=== PATIENT | female | born 1990 | race Caucasian/White ===

== ENCOUNTER → 2018-10-17 | Outpatient (CLI) | payer OTHER ==
--- NOTE | 2018-10-17 10:55 | CT ---
EXAMINATION TYPE: CT facial bones w con DATE OF EXAM: 10/17/2018 COMPARISON: None HISTORY: Rt sided facial pain CT DLP: 655 mGycm Automated exposure control for dose reduction was used. CONTRAST: CT scan of the facial bones is performed with IV Contrast, patient injected with 100 mL of Isovue 300 . TECHNIQUE: CT scan of the sinuses is performed without contrast, axial images are obtained, coronal r eformatted images are also reviewed. FINDINGS: Changes of chronic sinusitis are noted is a nasal septal tunnel artifact limits examination . Visualized oropharynx are symmetric. Nasopharynx symmetric. Intraorbital structures have a normal appearance. Visualized intracranial structures are symmetric. Globes have a normal appearance. No intraorbital ed elder. There may be mild inflammation in the subcutaneous fat surrounding the periorbital region which should be correlated clinically. Visualized portion of mastoid air cells show no abnormal opacificati on. The globes are intact bilaterally. No diagnostic evidence of abscess. Parotid glands are symmetric. IMPRESSION: 1. There may be mild cutaneous edema in the periorbital region which could be associated with a mild periorbital cellulitis. Correlate clinically. Intraorbital structures are symmetric.
== END | disposition home or self-care (01) ==
LOC: RADCTMAIN 10:14
PROVIDERS: ATTEND Family Medicine
DX: L03.213 Periorbital cellulitis (principal); Z88.0 Allergy status to penicillin
CPT/HCPCS: 70487; Q9967

== ENCOUNTER → 2019-04-13 | Outpatient (CLI) | payer OTHER ==
--- NOTE | 2019-04-13 14:03 | MR ---
EXAMINATION TYPE: MR cervical spine wo con DATE OF EXAM: 04/13/2019 COMPARISON: None HISTORY: Cervical radiculopathy TECHNIQUE: Multiplanar, multisequence images of the cervical spine were acquired. FINDINGS: The cervical spine vertebral bodies maintain normal vertebral body heights and alignment. T he spinal cord signal is within normal limits. Mild disc desiccation is seen of the upper and mid cer vical spine. Visualized portions of the posterior fossa are limited but appear grossly unremarkable. No prevertebral soft tissue swelling is seen. C2-C3: Mild disc desiccation. No focal disc herniation. Very mild facet arthropathy results in mild l eft neural foraminal narrowing. No spinal canal stenosis nor right neural foraminal narrowing. C3-C4: Mild disc desiccation without focal herniation, spinal canal stenosis, nor neural foraminal na rrowing. C4-C5: Small broad-based disc bulge without spinal canal stenosis or neural foraminal narrowing. C5-C6: Small central disc herniation is seen with 2 mm of subligamentous caudal disc extrusion. This slightly narrows the ventral subarachnoid space but does not cause significant spinal canal stenosis. Minimal left facet arthropathy results in minimal left neural foraminal narrowing. Right neuroforame n is patent. C6-C7: Small broad-based disc bulge is seen without spinal canal stenosis nor neural foraminal narrow ing. C7-T1: No significant disc disease, spinal canal stenosis, nor neural foraminal narrowing. IMPRESSION: 1. Small central disc herniation at C5-C6 with 2 mm of subligamentous caudal disc extrusion. This cre ates mild narrowing of the subarachnoid space ventrally without significant spinal canal stenosis. 2. Mild multilevel degenerative disc disease as detailed above at each level without additional level of focal disc herniation or spinal canal stenosis.
== END | disposition home or self-care (01) ==
LOC: RADMRIMAIN 12:16
PROVIDERS: ATTEND Family Medicine
DX: M50.122 Cervical disc disorder at C5-C6 level with radiculopathy (principal); G96.19 Other disorders of meninges, not elsewhere classified
CPT/HCPCS: 72141

== ENCOUNTER → 2019-07-22 | Outpatient (CLI) | payer OTHER ==
--- NOTE | 2019-07-22 16:00 | XR ---
EXAMINATION TYPE: XR shoulder complete RT, XR humerus RT DATE OF EXAM: 07/22/2019 CLINICAL HISTORY: Contusion injury with pain. TECHNIQUE: Three views of the right shoulder are obtained. 2 views right humerus. COMPARISON: None. FINDINGS: There is no acute fracture/dislocation evident in the right shoulder. The acromioclavicul ar and glenohumeral joint spaces appear within normal limits. The visualized ribs are intact and unr emarkable. Images of right humerus show no acute displaced fracture. No suspicious focal osseous lesion. Visuali zed right elbow joint is within normal limits. IMPRESSION: There is no acute fracture or dislocation in the right humerus or shoulder.
== END | disposition home or self-care (01) ==
LOC: RADXRMAIN 15:41
PROVIDERS: ATTEND Emergency Medicine
DX: S40.021A Contusion of right upper arm, initial encounter (principal)

== ENCOUNTER → 2019-08-04 | Outpatient (CLI) | payer OTHER ==
[2019-07-31 15:29] VITALS: BMI 33.6
[2019-08-04 13:57] VITALS: BP 137/92; PULSE 106; RESP 18
--- NOTE | 2019-08-06 11:13 | P.PAINCN ---
History of Present Illness - Reason for Consult Consult date: 08/04/19 - History of Present Illness This is a 28-year-old patient referred by Dr. Garcia with a chief complaint of chronic pain in right side of neck, radiating to right shoulder, with associated right arm numbness radiating down to the medial 3 fingers. This pain began without any inciting event in November 2018, patient believes pain has been worsening since then. She also endorses subjective weakness in right upper extremity. Patient has been taking medications from primary care physician including gabapentin 300 mg daily at bedtime and Flexeril with some relief. She reports that the gabapentin helped initially for about 1 month, however does not feel like it is currently helping. Patient denies adverse drug effects from medications. Patient also denies new-onset weakness, bowel/bladder inconti nence, or any other signs or symptoms of cauda equina syndrome. There are no signs of acute intoxication, and no indications of medication diversion or overuse. The patient reports that her case has been reviewed by Dr. Valle, neurosurgeon, who recommended interventional pain management. Patient notes that pain worsens significantly with any movements, and improves with medications, to an extent. Pain is rated as 7 to 9/10 Patient has not had surgery. Patient has not had injections previously. Patient has had physical therapy recentlythis was primarily directed towards her right shoulder, she has not undergone cervical physical therapy. In addition to above, 13-point review of systems is also negative for chest pain, shortness of breath, changes in vision, changes in hearing, new onset weakness, abdominal pain, diarrhea, extreme fatigue, malaise, fever, skin changes, homicidal or suicidal ideation, or bowel or bladder incontinence. Past Medical History Past Medical History: Cancer, GERD/Reflux Additional Past Medical History / Comment(s): HX SKIN CANCER-BASAL CELL. HYPOGLYCEMIA. migraines, slipped disks in neck and some bulging, History of Any Multi-Drug Resistant Organisms: None Reported Past Surgical History: No Surgical Hx Reported Additional Past Surgical History / Comment(s): EGD, cyst removed from genital area Past Anesthesia/Blood Transfusion Reactions: No Reported Reaction Smoking Status: Never smoker - Past Family History Mother Family Medical History: No Reported History Medications and Allergies Home Medications Medication Instructions Recorded Confirmed Type Amitriptyline HCl 25 mg PO HS 01/24/20 01/28/20 History Gabapentin [Neurontin] 300 mg PO HS 07/31/19 08/04/19 History Isibloom Control Pill 1 tab PO HS 07/31/19 08/04/19 History Allergies Allergy/AdvReac Type Severity Reaction Status Date / Time azithromycin [From Zithromax] Allergy Rash/Hives Verified 07/31/19 15:23 Penicillins Allergy Rash/Hives Verified 07/31/19 15:23 Physical Exam Physical exam: Vital Signs: Reviewed in EMR GENERAL: Well appearing, in no acute distress PSYCH: Mood and affect is appropriate. Awake, alert, and oriented SKIN: Skin color, texture, turgor normal, no rashes or lesions HEENT: Normocephalic, atraumatic. EOM intact CV: No pedal edema RESP: Respirations are unlabored, no audible wheezing GI: Abdomen non-distended MUSCULOSKELETAL: She strengthright shoulder abduction 4/5, right triceps extension 4/5, right biceps flexion 4/5, actuarial associate strength is mildly reduced on the right side. No atrophy or tone abnormalities are noted. Neck: Tenderness to palpation over the cervical paraspinous muscles. Spurling negative, Axial Loading Test negative, Schwartz's sign negative. No obvious deformity or signs of trauma. Normal cervical lordotic curve and normal cervical spine range of motion Extremities: Peripheral joint ROM is full and pain free without obvious instability or laxity in all four extremities. No edema or skin discolorations noted. Gait: Gait is normal NEUR: Bilateral upper extremity coordination and muscle stretch reflexes are physiologic and symmetric. No loss of sensation is noted. Cranial nerves are grossly intact. Results Results: Imaging: MRI cervical spine done on 04/13/2019 shows small central disc herniation at C5- 6 with 2 mm subligamentous caudal disc extrusion which creates mild narrowing of the subarachnoid space without significant spinal canal stenosis. Mild multilevel degenerative disc disease. Assessment and Plan Plan: Assessment: 1. Cervical degenerative disc disease 2. Cervical radiculopathy Plan: 1. Explanation: Diagnoses, prognoses, and multiple treatment options including but not limited to physical therapy, interventional therapies, medication management and surgery were discussed with the patient and all questions were answered to the patient's satisfaction. 2. Investigations: MRI cervical spine reviewed 3. Counseling: None 4. Procedures: We will schedule C7/T1 epidural steroid injection, right paramedian approach. 5. Consultations: None currently, provided patient obtains benefit from epidural steroid injections, would recommend cervical physical therapy. 6. Medications: Patient was given a prescription for Mobic 7.5 mg daily, I would also recommend increasing her gabapentin gradually to 600 mg 3 times a day. Her primary care physician is providing her with the prescription for gabapentin, I will make this recommendation to her. 7. Disposition: For above-mentioned procedure PQRS Measure Charge Sheet Measure #130: Documentation of Current Meds in Medical Chart: Patient's medications documented in chart Measure #226: Tobacco Use: Screen & Cessation Intervention: Pt not a tobacco user Measure #111: Pneumonia Vaccination: Pneumococcal vaccine NOT administered or previously given Measure #47: Advance Care Plan: Advance care planning discussed & documented, pt chose/unable to give Measure #412: Opioid Treatment Agreement: No documentation of signed opioid treatment agreement Measure #408: Opioid Therapy Follow-up Evaluation: Patient had NO f/u eval minimum every 3 months during opioid therapy Measure #317: Preventitive Care & Scrn High Bld Press & F/U: Pre-hypertensive or hypertensive BP documented, pt will f/u with PCP Measure #128: Body Mass Index (BMI) Screening & Follow-up: BMI documented within normal parameters Measure #131: Pain Assessment & Follow-up: Pain positive & plan documented, Follow-up scheduled Measure #431: Unhealthy Alcohol Use Preventative Care & Scrn: Patient not identified as an unhealthy alcohol user PQRS Narrative: Smoking Status Never smoker Home Medications: Ambulatory Orders Amitriptyline HCl 25 mg PO HS 07/31/19 Gabapentin [Neurontin] 300 mg PO HS 07/31/19 Isibloom Control Pill 1 tab PO HS 07/31/19
== END | disposition home or self-care (01) ==
LOC: PNWHC3 13:00
PROVIDERS: ATTEND Anesthesiology
DX: G89.29 Other chronic pain (principal); M50.10 Cervical disc disorder with radiculopathy, unspecified cervical region; Z79.3 Long term (current) use of hormonal contraceptives; Z79.899 Other long term (current) drug therapy; Z88.0 Allergy status to penicillin; Z88.1 Allergy status to other antibiotic agents
CPT/HCPCS: 99211

== ENCOUNTER 2019-08-18 09:18 | Day surgery (SDC) | payer OTHER ==
[2019-08-17 10:36] VITALS: BMI 34.0
[~2019-08-18 09:18] MED LIST: DEXAMETHASONE SOD PHOSPHATE 10 MG/ML 1 ML VIAL ONE; IOPAMIDOL M200 10 ML VIAL ONE; MIDAZOLAM 2 MG/2 ML VIAL ONE; fentaNYL (PF) 50 MCG/ML 2 ML AMP ONE
[2019-08-18 09:51] LABS: Glucose,Whole Blood 93 mg/dL (75-99)
[2019-08-18 09:54] VITALS: RESP 16; TEMP 97
[2019-08-18] MEDS ORDERED: LACTATED RINGERS 1,000 ML IV ONE ×2 (09:54→10:49)
[2019-08-18] MEDS ORDERED: LIDOCAINE 1% 20 ML VIAL (10MG/ML) FOR IV START INTRADERMA ONE (09:54)
[2019-08-18] MEDS ORDERED: LACTATED RINGERS 1,000 ML IV SCH (10:30)
--- NOTE | 2019-08-18 10:44 | P.PCN ---
Date of Procedure: 08/18/19 Surgeon: Jurgen Evans Pathology: none sent Condition: stable Disposition: PACU Description of Procedure: PROCEDURE 1. Cervical epidural steroid injection under fluoroscopic guidance, C7-T1 Right paramedian approach. 2. Cervical epidurogram. : PREOPERATIVE DIAGNOSIS: Cervical radiculopathy POSTOPERATIVE DIAGNOSIS: : Same as above ANESTHESIA: Local anesthesia with 1% lidocaine and IV moderate conscious sedation with Versed and Fentanyl . EBL 0 PROCEDURE INDICATION: The patient with neck pain and radiculopathy unresponsive to conservative treatment consents for procedure. PROCEDURE DESCRIPTION / TECHNIQUE: The patient was seen and identified in the preoperative area. Risks, benefits, complications, including but not limited to infections ,bleeding , allergic reactions to the medications ,and not complete pain relief, and alternatives were discussed with the patient, the patient agreed to proceed with the procedure and signed the consent. Patient was taken to the OR and time out was completed. The patient was placed in the prone position on the procedure table. A pillow was placed under the patients chest to increase the flexion of the cervical spine . The cervical area was prepped and draped in the usual sterile fashion. Vital signs were closely monitored during the procedure. Conscious sedation was used during the procedure to decrease patients anxiety. Using anterior-posterior fluoroscopy, the C7-T1 interlaminar space was identified and the skin over this site was marked and then infiltrated with 1% lidocaine subcutaneously. Subsequently, a 20-gauge 3-1/2-inch Tuohy epidural needle was inserted and advanced toward the epidural space by means of loss of resistance to air technique and guided by AP and lateral fluoroscopy. The needle tip contacted the lamina of T1 vertebra first, then it was walked off bone and into the epidural space using the loss of to air and fluoroscopic guidance to identify the epidural space which was found at about 7 cm from skin. The correct needle position in the epidural space was verified with the injection of 1 mL of the water soluble contrast dye Isovue and observing an excellent epidurogram with the epidural spread of the dye, after negative aspiration for blood and CSF and in the absence of paresthesias. Again after negative aspiration, a 5 ml mixture containing 20 mg of Decadron and 3 ml of preservative free Normal Saline solution was injected and a washout of epidurogram was seen. Needle was withdrawn intact, skin was cleansed, and bandages were applied.
[2019-08-18 10:58] VITALS: PULSE 85
[2019-08-18 11:05] VITALS: BP 120/82
--- NOTE | 2019-08-18 11:12 | FL ---
EXAMINATION TYPE: FL guided pain mgmt statistic DATE OF EXAM: 08/18/2019 HISTORY: Pain CERVICAL EPIDURAL; 18 SEC FL - 1 PIC SCANNED
== END 2019-08-18 11:15 | disposition home or self-care (01) ==
LOC: ORPAIN 09:18
PROVIDERS: ATTEND Anesthesiology
DX: M50.122 Cervical disc disorder at C5-C6 level with radiculopathy (principal); K21.9 Gastro-esophageal reflux disease without esophagitis; G43.909 Migraine, unspecified, not intractable, without status migrainosus; E66.9 Obesity, unspecified; Z68.35 Body mass index [BMI] 35.0-35.9, adult; Z88.0 Allergy status to penicillin; Z88.1 Allergy status to other antibiotic agents; Z85.828 Personal history of other malignant neoplasm of skin; Z98.890 Other specified postprocedural states; Z79.3 Long term (current) use of hormonal contraceptives
CPT/HCPCS: 81025; 62321; J2250; J1100; J3010; Q9966; 99152

== ENCOUNTER → 2019-08-26 | Outpatient (CLI) | payer OTHER ==
[2019-08-26 13:52] VITALS: BP 117/75; PULSE 98; RESP 16
--- NOTE | 2019-08-26 14:15 | P.PAINPG ---
Subjective Progress Note Date: 08/26/19 Pooja is a 28-year-old female presents today for follow-up after having cervical epidural steroid injection. She presents with about 50% relief in her right arm. She still has right neck pain which she reports does not improve significantly. She has pain mostly at nighttime when trying to go to bed she is unable to get comfortable. She has a feeling that her right arm goes to sleep at times but that is decreased since the first epidural injection. She has been on gabapentin 300 mg at nighttime once a day, our last visit we discussed increasing the dose but her primary care physician did not increase it for her. She had questions today about the long-term prognosis of her cervical disc bulg e, I did discuss with her the long-term implications of using Neurontin as well as interventional steroids. Discussed that physical therapy as well as dietary changes may offer the best long-term benefit. Objective - Vital Signs Vital signs: Vital Signs Temp Pulse 98 08/26/19 13:48 Resp 16 08/26/19 13:48 BP 117/75 08/26/19 13:48 Pulse Ox 98 08/26/19 13:48 - Exam General: Awake and alert oriented 3 no distress Respiratory exam: No audible wheezing no accessory muscle usage Cardiovascular exam: regular rate, palpable bilateral pulses, no lower extremity edema Abdominal exam: No distention nontender to palpation Cervical spine: There is normal alignment of the cervical spine, there is no tenderness to palpation over left side of the cervical spine there is minimal tenderness to palpation of the right trapezius muscle, there is minimal tenderness to palpation of the osseous structures more towards the right side. There is no tenderness to palpation over the scapular spine or the acromion process. The shoulder moves freely with no pain with provocation. Spurling's positive on the right. Lumbar spine: Normal lumbar lordosis, preserved paraspinal muscles. There is preserved gluteal muscle bulk. Lower extremity strength is 5 out of 5 bilaterally. Neuro exam: Normal sensation in bilateral upper extremities, deep tendon reflexes are 2+ bilateral upper extremities. Normal sensation in bilateral lower extremities. Deep tendon reflexes are 2+ in lower extremities Psych exam: Cooperative, appropriate mood Assessment and Plan Assessment: #1 cervical radiculopathy Plan: Pooja is 28-year-old female with right-sided cervical radiculopathy. We discussed increasing her gabapentin to 600 mg at nighttime, address her take about 1-2 hours before going to bed. We discussed using this is a temporary measure for the next 30-60 days only. We discussed repeating the epidural 1 more time and then commencing with physical therapy. We will give her prescription for physical therapy after next follow-up. Maps was checked on today's visit. PQRS Measure Charge Sheet Measure #130: Documentation of Current Meds in Medical Chart: Patient's medications documented in chart Measure #226: Tobacco Use: Screen & Cessation Intervention: Pt screened for tobacco use AND intervention given Measure #111: Pneumonia Vaccination: Pneumococcal vaccine NOT administered or previously given Measure #47: Advance Care Plan: Advance care planning discussed & documented, pt chose/unable to give Measure #412: Opioid Treatment Agreement: Documented signed opioid trtmnt agreemnt min once during opioid trtmnt Measure #408: Opioid Therapy Follow-up Evaluation: Patient had f/u eval minimum every 3 months during opioid therapy Measure #317: Preventitive Care & Scrn High Bld Press & F/U: Normal blood pressure, f/u not required Measure #128: Body Mass Index (BMI) Screening & Follow-up: BMI documented ABOVE normal parameters - f/u documented Measure #131: Pain Assessment & Follow-up: Pain positive & plan documented Measure #431: Unhealthy Alcohol Use Preventative Care & Scrn: Patient not identified as an unhealthy alcohol user PQRS Narrative: Smoking Status Never smoker Blood Pressure 117/75 Pain Intensity [Right Shoulder 5 ] Scale Used Numeric (1 - 10) Hx Alcohol Use (MH) Yes: RARE Home Medications: Ambulatory Orders Amitriptyline HCl 25 mg PO HS 07/31/19 Gabapentin [Neurontin] 300 mg PO HS 07/31/19 Isibloom Control Pill 1 tab PO HS 07/31/19 Controlled Substance Measures - Controlled Substance Measures Is patient prescribed a controlled substance at discharge?: Yes When asked, does pt state using other controlled substances?: No If prescribed controlled substance>3 days was MAPS reviewed?: Yes If Rx opioid, was Start Talking consent form obtained?: No If opioid is for acute pain is fill amount 7 days or less?: Yes Was information provided regarding opioid addiction?: Yes
== END | disposition home or self-care (01) ==
LOC: PNWHC3 13:37
PROVIDERS: ATTEND Hospitalist
DX: M54.12 Radiculopathy, cervical region (principal); Z79.899 Other long term (current) drug therapy
CPT/HCPCS: 99211

== ENCOUNTER 2019-09-01 09:02 | Day surgery (SDC) | payer OTHER ==
[2019-08-27 14:16] VITALS: BMI 34.8
[~2019-09-01 09:02] MED LIST changes: -DEXAMETHASONE SOD PHOSPHATE 10 MG/ML 1 ML VIAL ONE; -IOPAMIDOL M200 10 ML VIAL ONE; +LACTATED RINGERS 1,000 ML IV SCH; -MIDAZOLAM 2 MG/2 ML VIAL ONE; -fentaNYL (PF) 50 MCG/ML 2 ML AMP ONE
[2019-09-01 09:42] LABS: Glucose,Whole Blood 110 mg/dL (75-99)
[2019-09-01 09:43] VITALS: TEMP 97.7
[2019-09-01] MEDS ORDERED: IOPAMIDOL M200 10 ML VIAL ONE (09:59)
[2019-09-01] MEDS ORDERED: fentaNYL (PF) 50 MCG/ML 2 ML AMP ONE (09:59)
[2019-09-01] MEDS ORDERED: MIDAZOLAM 2 MG/2 ML VIAL ONE (09:59)
[2019-09-01] MEDS ORDERED: DEXAMETHASONE SOD PHOSPHATE 10 MG/ML 1 ML VIAL ONE (09:59)
--- NOTE | 2019-09-01 10:16 | P.PCN ---
Date of Procedure: 09/01/19 Description of Procedure: taj Evans Pathology: none sent Condition: stable Disposition: PACU Description of Procedure: PROCEDURE 1. Cervical epidural steroid injection under fluoroscopic guidance, C7-T1 Right paramedian approach. 2. Cervical epidurogram. : PREOPERATIVE DIAGNOSIS: Cervical radiculopathy POSTOPERATIVE DIAGNOSIS: : Same as above ANESTHESIA: Local anesthesia with 1% lidocaine and IV moderate conscious sedation with Versed and Fentanyl . EBL 0 PROCEDURE INDICATION: The patient with neck pain and radiculopathy unresponsive to conservative treatment consents for procedure. PROCEDURE DESCRIPTION / TECHNIQUE: The patient was seen and identified in the preoperative area. Risks, benefits, complications, including but not limited to infections ,bleeding , allergic reactions to the medications ,and not complete pain relief, and alternatives were discussed with the patient, the patient agreed to proceed with the procedure and signed the consent. Patient was taken to the OR and time out was completed. The patient was placed in the prone position on the procedure table. A pillow was placed under the patients chest to increase the flexion of the cervical spine . The cervical area was prepped and draped in the usual sterile fashion. Vital signs were closely monitored during the procedure. Conscious sedation was used during the procedure to decrease patients anxiety. Using anterior-posterior fluoroscopy, the C7-T1 interlaminar space was identified and the skin over this site was marked and then infiltrated with 1% lidocaine subcutaneously. Subsequently, a 20-gauge 3-1/2-inch Tuohy epidural needle was inserted and advanced toward the epidural space by means of loss of resistance to air technique and guided by AP and lateral fluoroscopy. The needle tip contacted the lamina of T1 vertebra first, then it was walked off bone and into the epidural space using the loss of to air and fluoroscopic guidance to identify the epidural space which was found at about 7 cm from skin. The correct needle position in the epidural space was verified with the injection of 1 mL of the water soluble contrast dye Isovue and observing an excellent epidurogram with the epidural spread of the dye, after negative aspiration for blood and CSF and in the absence of paresthesias. Again after negative aspiration, a 5 ml mixture containing 10 mg of Decadron and 3 ml of preservative free Normal Saline solution was injected and a washout of epidurogram was seen. Needle was withdrawn intact, skin was cleansed, and bandages were applied. A copy of the needle placement patient was saved to the fluoroscopy machine.
[2019-09-01] MEDS ORDERED: IV FLUID CONTINUATION 975 ML IV ONE (10:29)
--- NOTE | 2019-09-01 10:34 | FL ---
EXAMINATION TYPE: FL guided pain mgmt statistic DATE OF EXAM: 09/01/2019 CLINICAL HISTORY: Neck pain. TECHNIQUE: Fluoroscopy. COMPARISON: None. FINDINGS: Fluoroscopic guidance was provided during pain relief procedure performed by Dr. Evans. A total of 7 seconds of fluoroscopic time was utilized during the procedure and two spot images are acquired. Images acquired shows needle localization of the cervical thoracic junction. IMPRESSION: As Above.
[2019-09-01 10:46] VITALS: RESP 16
[2019-09-01 11:00] VITALS: BP 130/82; PULSE 88
== END 2019-09-01 11:36 ==
LOC: ORPAIN 09:02
PROVIDERS: ATTEND Anesthesiology
DX: M54.12 Radiculopathy, cervical region (principal); Z88.0 Allergy status to penicillin; Z88.1 Allergy status to other antibiotic agents
CPT/HCPCS: 81025; 62321; J2250; J1100; J3010; Q9966

== ENCOUNTER → 2020-10-20 | Outpatient (CLI) | payer OTHER ==
--- NOTE | 2020-10-21 11:43 | XR ---
EXAMINATION TYPE: XR chest 2V DATE OF EXAM: 10/20/2020 COMPARISON: 11/28/2010 HISTORY: 29-year-old female cough and shortness of breath TECHNIQUE: Frontal and lateral views FINDINGS: The cardiomediastinal silhouette, aorta, and pulmonary vasculature are within normal limits. Lungs an d pleural spaces are clear. IMPRESSION: No acute cardiopulmonary process.
== END | disposition home or self-care (01) ==
LOC: RADXRMAIN 16:19
PROVIDERS: ATTEND Physician Assistant Medical
DX: R06.02 Shortness of breath (principal); R05 Cough
CPT/HCPCS: 71046

== ENCOUNTER → 2021-09-04 | Outpatient (CLI) | payer OTHER ==
--- NOTE | 2021-09-05 08:39 | USB ---
Reason for exam: clinical finding. History: Patient has history of other cancer at age 19. Family history of breast cancer in maternal aunt. Taking hormonal contraceptives for 12 years. Indicated problem(s): lump or thickening in the right breast. Physical Findings: Nurse Summary: patient states doctor felt right breast lump 2 weeks ago, bilateral nodularity (nurse mj). US Breast RT Right complete breast ultrasound includes all four quadrants, the retroareolar region and axilla. Finding demonstrates no cystic or solid lesion seen. Right breast scanned entirely. These results were verbally communicated with the patient and result sheet given to the patient on 09/04/21. ASSESSMENT: Negative, BI-RAD 1 RECOMMENDATION: Clinical management of the right breast. Manage patient on a clinical basis.
== END | disposition home or self-care (01) ==
LOC: RADUSWWP 14:52
PROVIDERS: ATTEND Family Medicine
DX: N63.0 Unspecified lump in unspecified breast (principal); Z80.3 Family history of malignant neoplasm of breast

== ENCOUNTER 2022-04-03 06:28 | Day surgery (SDC) | payer OTHER ==
[~2022-04-03 06:28] MED LIST changes: +ACETAMINOPHEN TAB 500 MG TAB PO PRN; +DEXAMETHASONE SOD PHOSPHATE 4 MG/ML 1 ML VIAL IV ONE; +HEPARIN SODIUM,PORCINE/PF 5,000 UNIT/0.5 ML SYRINGE SQ PRN; +ONDANSETRON 4 MG/2 ML VIAL IVP ONE
[2022-04-03 07:06] LABS: Glucose,Whole Blood 90 mg/dL (70-110)
[2022-04-03 07:11] VITALS: RESP 16
[2022-04-03] MEDS ORDERED: HYDROCORTISONE SUCCINATE 100 MG/2 ML VIAL IVP ONE (07:12)
[2022-04-03] MEDS ORDERED: fentaNYL (PF) 50 MCG/ML 2 ML AMP ONE (07:47)
[2022-04-03] MEDS ORDERED: ROCURONIUM 10 MG/ML (5 ML VIAL) IV ONE (07:47)
[2022-04-03] MEDS ORDERED: LIDOCAINE 2% INJ 20 MG/ML (2 ML VIAL) ONE (07:47)
[2022-04-03] MEDS ORDERED: HYDROmorphone (PF) 1 MG/ML ONE (07:47)
[2022-04-03] MEDS ORDERED: PROPOFOL 10 MG/ML 20 ML VIAL IV ONE (07:47)
[2022-04-03] MEDS ORDERED: MIDAZOLAM 2 MG/2 ML VIAL ONE (07:47)
[2022-04-03] MEDS ORDERED: GLYCOPYRROLATE 0.2 MG/ML 2 ML VIAL ONE (07:47)
[2022-04-03] MEDS ORDERED: BUPIVACAINE (PF) 0.25% 30 ML VIAL SQ ONE (08:16)
--- NOTE | 2022-04-03 08:41 | P.GSHP ---
History of Present Illness H&P Date: 04/03/22 Chief Complaint: Right upper quadrant pain This a 31-year-old female cholecystitis or quadrant pain. Her recent HIDA scans was abnormal ejection fraction consistent with chronic cholecystitis. Past Medical History Past Medical History: Cancer, Diabetes Mellitus, GERD/Reflux Additional Past Medical History / Comment(s): HX SKIN CANCER-BASAL CELL. HYPOGLYCEMIA. migraines, slipped disks in neck and some bulging, " pre diabetic" History of Any Multi-Drug Resistant Organisms: None Reported Past Surgical History: No Surgical Hx Reported Additional Past Surgical History / Comment(s): EGD, cyst removed from genital area, PAIN CLINIC PROCEDURES Past Anesthesia/Blood Transfusion Reactions: No Reported Reaction Additional Past Anesthesia/Blood Transfusion Reaction / Comment(s): SLOW TO WAKE UP FROM ANESTHESIA Smoking Status: Never smoker - Past Family History Mother Family Medical History: No Reported History Medications and Allergies Home Medications Medication Instructions Recorded Confirmed Type Isibloom Control Pill 1 tab PO HS 07/31/19 04/03/22 History Liraglutide [Saxenda] 3 ml INJ DAILY 03/29/22 04/03/22 History Lumateperone Tosylate [Caplyta] 42 mg PO HS 03/29/22 04/03/22 History Prazosin [Minipress] 1 tab PO HS 03/29/22 04/03/22 History Sertraline [Zoloft] 100 mg PO HS 03/29/22 04/03/22 History Topiramate [Topamax] 1 tab PO HS 03/29/22 04/03/22 History Allergies Allergy/AdvReac Type Severity Reaction Status Date / Time azithromycin [From Zithromax] Allergy Rash/Hives Verified 04/03/22 07:50 Penicillins AdvReac Nausea & Verified 04/03/22 07:50 Vomiting Surgical - Exam Vital Signs Temp Pulse Resp BP Pulse Ox 97.3 F L 64 16 121/57 97 04/03/22 06:59 04/03/22 06:59 04/03/22 06:59 04/03/22 06:59 04/03/22 06:59 - General well developed, well nourished, no distress - Eyes PERRL - ENT normal pinna - Neck no masses - Respiratory normal expansion - Cardiovascular Rhythm: regular - Abdomen Abdomen: soft, non tender Assessment and Plan Assessment: Chronic cholecystitis. We'll perform laparoscopic cholecystectomy
--- NOTE | 2022-04-03 08:41 | P.OP ---
Date of Procedure: 04/03/22 Preoperative Diagnosis: Chronic cholecystitis Postoperative Diagnosis: Chronic cholecystitis Procedure(s) Performed: Laparoscopic cholecystectomy Anesthesia: CITLALI Surgeon: Olu Shipley Estimated Blood Loss (ml): 5 Pathology: other (Gallbladder) Condition: stable Disposition: PACU Description of Procedure: The patient was placed on the operating table. The patient received a general endotracheal tube anesthesia. The patients abdomen was prepped and draped in the usual sterile fashion. Through an infraumbilical stab incision, the fascia of the anterior abdominal wall was grasped with a pair of Kochers and then the Veress needle was placed in the peritoneal cavity. Position of the Veress needle was confirmed with positive drop test. The abdomen was then insufflated. After adequate insufflation, the 10 mm trocar was placed in the peritoneal cavity. Following this the laparoscope was placed in the peritoneal cavity. The patient was placed in the head-up, right side up position and then a 5 mm trocar was placed in the right lateral and right subcostal position under direct visualization. A 8 mm trocar was placed in the epigastric position. The gallbladder was grasped in the fundus and infundibulum. Traction on the gallbladder was placed in the lateral and the cephalad positions. The triangle of Calot was visualized.. The cystic duct was bluntly dissected until the union of the cystic duct and common bile duct was seen. A critical view of safety was achieved. The cystic duct was then divided and sealed with the Harmonic scissors. A PDS Endoloop was then placed throughout the cystic duct stump. The cystic artery divided and sealed with the Harmonic scissors. The gallbladder was then removed from the liver bed using Harmonic scissors. The gallbladder was then extracted through the epigastric port site. Operative field was checked for any bleeding spots and Harmonic scissors was used to coagulate the liver bed. The abdomen was irrigated. The trocars were removed. The skin was closed using interrupted 3-0 Vicryl suture. Dermabond dressing were applied. The patient tolerated the procedure well.
[2022-04-03] MEDS ORDERED: KETOROLAC 15 MG/ML 1 ML VIAL IVP ONE (08:50)
[2022-04-03] MEDS: HYDROmorphone 0.5 MG/0.5 ML SYRINGE IVP PRN ×2 (09:00→09:25)
[2022-04-03 09:06] VITALS: TEMP 96.9
[2022-04-03] MEDS ORDERED: LACTATED RINGERS 1,000 ML IV ONE (09:16)
[2022-04-03] MEDS ORDERED: ONDANSETRON 4 MG/2 ML VIAL ONE (10:59)
[2022-04-03] MEDS ORDERED: ONDANSETRON 4 MG/2 ML VIAL IVP ONE (11:01)
[2022-04-03 11:33] VITALS: BP 114/65; PULSE 81
== END 2022-04-03 11:56 | disposition home or self-care (01) ==
LOC: OR 06:28
PROVIDERS: ATTEND Surgery
DX: K80.10 Calculus of gallbladder with chronic cholecystitis without obstruction (principal); E11.649 Type 2 diabetes mellitus with hypoglycemia without coma; K58.9 Irritable bowel syndrome, unspecified; K21.9 Gastro-esophageal reflux disease without esophagitis; G43.909 Migraine, unspecified, not intractable, without status migrainosus; M50.20 Other cervical disc displacement, unspecified cervical region; Z85.828 Personal history of other malignant neoplasm of skin; Z98.890 Other specified postprocedural states; Z79.4 Long term (current) use of insulin; Z79.83 Long term (current) use of bisphosphonates; Z79.899 Other long term (current) drug therapy; Z79.811 Long term (current) use of aromatase inhibitors; Z88.0 Allergy status to penicillin; Z88.1 Allergy status to other antibiotic agents
CPT/HCPCS: 47562; 81025; 88304; J2250; J1100; J1720; J0690; J2405; J3010; J1170 ×2; J1885; J2704; J1644; J2001

== ENCOUNTER 2022-05-17 06:58 | Day surgery (SDC) | payer OTHER ==
[2022-05-17 07:30] LABS: Glucose,Whole Blood 94 mg/dL (70-110)
[2022-05-17 07:31] VITALS: TEMP 97.7
[2022-05-17] MEDS ORDERED: LACTATED RINGERS 1,000 ML IV ONE (07:32)
[2022-05-17] MEDS ORDERED: PROPOFOL 10 MG/ML 20 ML VIAL IV ONE (07:48)
[2022-05-17] MEDS ORDERED: LACTATED RINGERS 1,000 ML IV SCH (07:48)
[2022-05-17] MEDS ORDERED: LIDOCAINE 1% (10MG/ML) FOR IV START INTRADERMA PRN (07:48)
[2022-05-17] MEDS ORDERED: LIDOCAINE 2% INJ 20 MG/ML (2 ML VIAL) ONE (07:48)
--- NOTE | 2022-05-17 07:53 | P.GSHP ---
History of Present Illness H&P Date: 05/17/22 Chief Complaint: GERD The 31-year-old female with history of GERD. Patient presents today for EGD. Past Medical History Past Medical History: Cancer, Diabetes Mellitus, GERD/Reflux Additional Past Medical History / Comment(s): HX SKIN CANCER-BASAL CELL. HYPOGLYCEMIA. migraines, slipped disks in neck and some bulging, History of Any Multi-Drug Resistant Organisms: None Reported Past Surgical History: No Surgical Hx Reported, Cholecystectomy Additional Past Surgical History / Comment(s): EGD, cyst removed from genital area, PAIN CLINIC PROCEDURES Past Anesthesia/Blood Transfusion Reactions: No Reported Reaction Additional Past Anesthesia/Blood Transfusion Reaction / Comment(s): SLOW TO WAKE UP FROM ANESTHESIA Smoking Status: Never smoker - Past Family History Mother Family Medical History: No Reported History Medications and Allergies Home Medications Medication Instructions Recorded Confirmed Type Isibloom Control Pill 1 tab PO HS 07/31/19 05/17/22 History Liraglutide [Saxenda] 3 ml INJ DAILY 03/29/22 05/17/22 History Prazosin [Minipress] 1 tab PO HS 03/29/22 05/17/22 History Sertraline [Zoloft] 100 mg PO HS 03/29/22 05/17/22 History Topiramate [Topamax] 1 tab PO HS 03/29/22 05/17/22 History Acetaminophen Tab [Tylenol] 650 mg PO Q6H #30 tab 04/03/22 05/17/22 Rx Brexpiprazole [Rexulti] 1 mg PO DAILY 05/17/22 05/17/22 History Allergies Allergy/AdvReac Type Severity Reaction Status Date / Time azithromycin [From Zithromax] Allergy Rash/Hives Verified 05/17/22 07:12 Penicillins AdvReac Nausea & Verified 05/17/22 07:12 Vomiting Surgical - Exam Vital Signs Temp Pulse Resp BP Pulse Ox 97.7 F 84 15 119/73 98 05/17/22 07:23 05/17/22 07:23 05/17/22 07:23 05/17/22 07:23 05/17/22 07:23 - General well developed, well nourished, no distress - Eyes PERRL - ENT normal pinna - Neck no masses - Respiratory normal expansion - Cardiovascular Rhythm: regular - Abdomen Abdomen: soft, non tender Assessment and Plan Assessment: GERD. We'll perform EGD.
--- NOTE | 2022-05-17 08:01 | P.OP ---
Date of Procedure: 05/17/22 Preoperative Diagnosis: GERD Postoperative Diagnosis: Antral gastritis Procedure(s) Performed: EGD Anesthesia: MAC Surgeon: Olu Shipley Pathology: other (Antrum) Condition: stable Disposition: PACU Description of Procedure: The patient's placed on the endoscopy table in the lateral position. She rece ived IV sedation. The gastroscope placed oropharynx passed in the esophagus into the stomach. Scope was then placed through the pylorus. The first and second portion of the duodenum appeared normal. The scope was then brought back into the antrum. This appeared. Mildly inflamed. A biopsies performed. The scope was then retroflexed and the remainder the stomach appeared normal. The GE junction was at 40 cm. There was no significant hiatal hernia. The distal esophagus appeared minimally inflamed a biopsies performed. The proximal esophagus appeared normal. Scope withdrawn for patient.
[2022-05-17 08:37] VITALS: BP 115/79; PULSE 71; RESP 17
== END 2022-05-17 09:05 | disposition home or self-care (01) ==
LOC: ORWHC2ENDO 06:58
PROVIDERS: ATTEND Surgery
DX: K29.50 Unspecified chronic gastritis without bleeding (principal); K21.9 Gastro-esophageal reflux disease without esophagitis; E11.9 Type 2 diabetes mellitus without complications; G43.909 Migraine, unspecified, not intractable, without status migrainosus; E16.2 Hypoglycemia, unspecified; M50.20 Other cervical disc displacement, unspecified cervical region; Z90.49 Acquired absence of other specified parts of digestive tract; Z85.828 Personal history of other malignant neoplasm of skin; Z88.1 Allergy status to other antibiotic agents; Z88.0 Allergy status to penicillin; Z79.899 Other long term (current) drug therapy; Z79.84 Long term (current) use of oral hypoglycemic drugs
CPT/HCPCS: 88305; 43239; J2704; J2001

== ENCOUNTER → 2022-06-21 | Outpatient (CLI) | payer OTHER ==
--- NOTE | 2022-06-21 20:31 | FL ---
EXAMINATION TYPE: FL UGI air w esophagus DATE OF EXAM: 06/21/2022 COMPARISON: None HISTORY: Gastroesophageal reflux TECHNIQUE: Double air contrast technique is utilized to evaluate the esophagus and upper gastrointest inal tract. FINDINGS: Esophagus dilated to normal caliber has normal contour to the gastroesophageal junction.. No intralum inal or extramural defects evident. Gastroesophageal reflux to the level of the clavicles was evident during the exam. Fundus body and antrum of the stomach are well visualized. No intraluminal or extrarenal defects evid ent. There is mild fold hypertrophy through the duodenum. Duodenal sweep and ligament of Treitz is in the normal position. IMPRESSION: 1. Gastroesophageal reflux to the level of clavicles. 2. Mild duodenitis may be present.
== END | disposition home or self-care (01) ==
LOC: RADUSWWP 08:01
PROVIDERS: ATTEND Surgery
DX: K21.9 Gastro-esophageal reflux disease without esophagitis (principal)
CPT/HCPCS: 74246

== ENCOUNTER 2022-07-20 10:00 | Day surgery (SDC) | payer OTHER ==
[~2022-07-20 10:00] MED LIST changes: -LACTATED RINGERS 1,000 ML IV SCH; +MIDAZOLAM 2 MG/2 ML VIAL IV PRN; +SCOPOLAMINE 1 MG/72 HR PATCH TRANSDERM ONE
[2022-07-20] MEDS: LACTATED RINGERS 1,000 ML IV SCH (10:55)
[2022-07-20 11:01] LABS: Glucose,Whole Blood 88 mg/dL (70-110)
[2022-07-20] MEDS ORDERED: BUPIVACAIN-EPI 0.25%-1:200,000 30 ML VIAL SQ ONE ×2 (12:30→12:55)
[2022-07-20] MEDS ORDERED: LACTATED RINGERS 1,000 ML IV ONE (13:18)
--- NOTE | 2022-07-20 13:36 | P.OP ---
Date of Procedure: 07/20/22 Preoperative Diagnosis: GERD Postoperative Diagnosis: GERD Procedure(s) Performed: Laparoscopic Carlos fundoplication Anesthesia: CITLALI Surgeon: Olu Shipley Estimated Blood Loss (ml): 5 Pathology: none sent Condition: stable Disposition: PACU Description of Procedure: HThe patient was placed on the operating table in the supine position. The patient received general anesthesia. And was placed in dorsal lithotomy position. The patient was prepped and draped in the usual sterile fashion. The skin incision sites were anesthetized with 1% local Xylocaine. The skin was incised in the left periumbilical area and then using a blade less 5 mm trocar under direct visualization panel cavity was entered. After adequate insufflation the laparoscope was then placed into the peritoneal cavity. Next a 5 mm trochars placed in the right epigastric position. Another 5 millimeter trocar the right lateral position. Another 5 millimeter trocar in the left lateral position a 5 mm trocar is placed in the left epigastric position. And then the initial 5 mm trocar was exchanged for a 10 mm trocar. The left lateral lobe liver was retracted. The hernia was seen. The crural defect was then dissected using the Harmonic scissors device. A 360 crural dissection was performed the esophagus stomach was reduced back into the peritoneal Cavity. The crural defect was then closed using 2-0 Ethibond suture. Next the fundus of the stomach was mobilized using the [place] scissors device. and then a 58- Swedish bougie dilator was placed oropharynx passed into the esophagus and stomach the fundal plication wrap was then performed by grasping the fundus posteriorly and bringing it around the esophagus and stomach fundoplication was then performed using 2-0 Ethibond suture. Care was taken that the fundal location rested over top of the intra-abdominal esophagus. There was no injury seen to the stomach or esophagus. The dilator was then withdrawn. The abdomen was irrigated there is no bleeding seen. The trochars were then withdrawn and then skin incision sites were closed using 3-0 Monocryl suture Steri-Strips are applied. Patient thought procedure well and sent to recovery room in stable condition.
[2022-07-20] MEDS: HYDROmorphone 0.5 MG/0.5 ML SYRINGE IVP PRN ×2 (14:56→15:08)
[2022-07-20] MEDS: D5-0.45% NACL WITH KCL 20MEQ/L 1,000 ML IV SCH ×2 (18:33→23:21)
[2022-07-20] MEDS: HYDROmorphone 1 MG/ML 1 ML SYRINGE IVP PRN (20:07)
[2022-07-20] MEDS: TOPIRAMATE 100 MG TAB PO SCH (21:53)
[2022-07-21] MEDS: LACTATED RINGERS 1,000 ML IV SCH (04:36)
[2022-07-21] MEDS: HYDROmorphone 1 MG/ML 1 ML SYRINGE IVP PRN (04:39)
[2022-07-21] MEDS: SERTRALINE 100 MG TAB PO SCH (08:52)
[2022-07-21] MEDS: D5-0.45% NACL WITH KCL 20MEQ/L 1,000 ML IV SCH ×3 (08:52→23:54)
[2022-07-21] MEDS: ENOXAPARIN 40 MG/0.4 ML SYRINGE SQ SCH (08:52)
--- NOTE | 2022-07-21 11:02 | P.CONS ---
History of Present Illness - Reason for Consult Management of diabetes mellitus - History of Present Illness Patient is status post Arash fundoplication clinically doing well patient the is passing gas still has some soreness in the surgical site area. Patient denied any fever chills nausea vomiting abdominal pain. REVIEW OF SYSTEMS: CONSTITUTIONAL: No fever, no malaise, no fatigue. HEENT: No recent visual problems or hearing problems. Denied any sore throat. CARDIOVASCULAR: No chest pain, orthopnea, PND, no palpitations, no syncope. PULMONARY: No shortness of breath, no cough, no hemoptysis. GASTROINTESTINAL: No diarrhea, no nausea, no vomiting.NEUROLOGICAL: No headaches, no weakness, no numbness. HEMATOLOGICAL: Denies any bleeding or petechiae. GENITOURINARY: Denies any burning micturition, frequency, or urgency. MUSCULOSKELETAL/RHEUMATOLOGICAL: Denies any joint pain, swelling, or any muscle pain. ENDOCRINE: Denies any polyuria or polydipsia. The rest of the 14-point review of systems is negative. PHYSICAL EXAMINATION: GENERAL: The patient is alert and oriented x3, not in any acute distress. Well developed, well nourished. HEENT: Pupils are round and equally reacting to light. EOMI. No scleral icterus. No conjunctival pallor. Normocephalic, atraumatic. No pharyngeal erythema. No thyromegaly. CARDIOVASCULAR: S1 and S2 present. No murmurs, rubs, or gallops. PULMONARY: Chest is clear to auscultation, no wheezing or crackles. ABDOMEN: Soft, nontender, nondistended, normoactive bowel sounds. No palpable organomegaly. Surgical site area is clear MUSCULOSKELETAL: No joint swelling or deformity. EXTREMITIES: No cyanosis, clubbing, or pedal edema. NEUROLOGICAL: Gross neurological examination did not reveal any focal deficits. SKIN: No rashes. Assessment and plan -Gastroesophageal reflux disease status post Arash fundoplication continue with proton pump inhibitor patient is able to tolerate liquid diet patient is medically stable to be discharged. -Type 2 diabetes mellitus patient was started on sliding scale insulin patient can resume her home regimen upon discharge -Bipolar disorder for which patient will be started on her home medications DVT prophylaxis: As per primary service Past Medical History Past Medical History: Cancer, Diabetes Mellitus, GERD/Reflux, Musculoskeletal Disorder Additional Past Medical History / Comment(s): HX SKIN CANCER-BASAL CELL. HYPOGLYCEMIA. migraines, slipped disks in neck and some bulging History of Any Multi-Drug Resistant Organisms: None Reported Past Surgical History: Cholecystectomy Additional Past Surgical History / Comment(s): cyst removed from genital area, PAIN CLINIC PROCEDURES, recent EGD, arash funduloplasty 07/20/[address] mcintosh Past Anesthesia/Blood Transfusion Reactions: No Reported Reaction Additional Past Anesthesia/Blood Transfusion Reaction / Comm: SLOW TO WAKE UP FROM ANESTHESIA Past Psychological History: Anxiety, Bipolar, Depression, PTSD Smoking Status: Never smoker Past Alcohol Use History: Rare Past Drug Use History: None Reported - Past Family History Mother Family Medical History: No Reported History Medications and Allergies Home Medications Medication Instructions Recorded Confirmed Type Isibloom Control Pill 1 tab PO HS 07/31/19 07/17/22 History Liraglutide [Saxenda] 3 ml INJ DAILY 03/29/22 07/20/22 History Prazosin [Minipress] 1 mg PO HS 03/29/22 07/17/22 History Sertraline [Zoloft] 100 mg PO DAILY 03/29/22 07/17/22 History Topiramate [Topamax] 150 mg PO HS 03/29/22 07/17/22 History Allergies Allergy/AdvReac Type Severity Reaction Status Date / Time azithromycin [From Zithromax] Allergy Rash/Hives Verified 07/17/22 16:02 Penicillins AdvReac Nausea & Verified 07/17/22 16:02 Vomiting Physical Exam Vitals: Vital Signs Temp Pulse Pulse Resp BP BP Pulse Ox 07/21/22 07:41 98.1 F 80 16 110/68 98 07/21/22 01:24 98.2 F 72 14 105/68 98 07/20/22 19:21 98.2 F 87 15 100/63 97 07/20/22 17:55 113 H 100/45 97 07/20/22 17:25 84 107/65 95 07/20/22 16:55 88 112/77 96 07/20/22 16:40 83 120/80 95 07/20/22 16:25 108 H 123/68 96 07/20/22 16:10 86 118/55 91 L 07/20/22 15:55 98.1 F 87 18 120/72 96 07/20/22 15:21 74 16 108/59 99 07/20/22 15:04 73 16 107/56 99 07/20/22 14:49 74 16 115/64 99 07/20/22 14:33 81 16 116/61 99 07/20/22 14:19 77 14 119/64 99 07/20/22 14:04 78 14 123/65 100 07/20/22 13:40 97.2 F L 100 14 122/65 100 Intake and Output 07/20/22 07/21/22 07/21/22 22:59 06:59 14:59 Other: Voiding Method Toilet # Voids 1 1 Weight 88.5 kg
--- NOTE | 2022-07-21 11:12 | P.PN ---
Progress Note - Text Progress Note Date: 07/21/22 Patient has complaints of incisional pain. She also has some complaints of shoulder pain. She is tolerating clear liquids. On exam vital signs are still. Abdomen soft. Patient will be discharged tomorrow. She'll stay for postoperative pain management.
[2022-07-21 12:34] VITALS: BMI 33.5
[2022-07-21] MEDS: HYDROcodone/APAP 5-325MG 1 EACH TAB PO PRN (19:54)
[2022-07-21] MEDS ORDERED: PRAZOSIN 1 MG CAP PO SCH (21:00)
[2022-07-21] MEDS: TOPIRAMATE 100 MG TAB PO SCH (21:13)
[2022-07-22] MEDS: LACTATED RINGERS 1,000 ML IV SCH (06:32)
[2022-07-22 08:03] VITALS: BP 115/76; PULSE 82; RESP 18; TEMP 97.3
[2022-07-22] MEDS: HYDROcodone/APAP 5-325MG 1 EACH TAB PO PRN (08:35)
[2022-07-22] MEDS: ENOXAPARIN 40 MG/0.4 ML SYRINGE SQ SCH (08:35)
[2022-07-22] MEDS: SERTRALINE 100 MG TAB PO SCH (08:35)
[2022-07-22] MEDS: D5-0.45% NACL WITH KCL 20MEQ/L 1,000 ML IV SCH (09:08)
--- NOTE | 2022-07-22 11:49 | P.DS ---
Providers Expected date of discharge: 07/22/22 Attending physician: Olu Shipley Consults: 07/20/22 13:36 Consult Physician Routine Consulting Provider: Leanna Good Consult Reason/Comments: Medical management Do you want consulting provider notified?: Yes Primary care physician: Keri Garcia [facility] Course: The 31-year-old female who underwent laparoscopic dislocation. Patient did well postop. Please see chart for details. Procedures: Laparoscopic Carlos fundoplication Patient Condition at Discharge: Good Plan - Discharge Summary Discharge Rx Participant: No New Discharge Prescriptions: New Acetaminophen Tab [Tylenol] 650 mg PO Q6H #30 tab Docusate [Colace] 100 mg PO BID #20 capsule Ibuprofen [Motrin] 600 mg PO Q6HR PRN #40 tab PRN Reason: Pain Continue Isibloom Control Pill 1 tab PO HS Topiramate [Topamax] 150 mg PO HS Sertraline [Zoloft] 100 mg PO DAILY Prazosin [Minipress] 1 mg PO HS Liraglutide [Saxenda] 3 ml INJ DAILY Discharge Medication List Isibloom Control Pill 1 tab PO HS 07/31/19 [History] Liraglutide [Saxenda] 3 ml INJ DAILY 03/29/22 [History] Prazosin [Minipress] 1 mg PO HS 03/29/22 [History] Sertraline [Zoloft] 100 mg PO DAILY 03/29/22 [History] Topiramate [Topamax] 150 mg PO HS 03/29/22 [History] Acetaminophen Tab [Tylenol] 650 mg PO Q6H #30 tab 07/22/22 [Rx] Docusate [Colace] 100 mg PO BID #20 capsule 07/22/22 [Rx] Ibuprofen [Motrin] 600 mg PO Q6HR PRN #40 tab 07/22/22 [Rx] Follow up Appointment(s)/Referral(s): Olu Shipley MD [STAFF PHYSICIAN] - 1 Week (please call the office tomorrow to make appointment) Patient Instructions/Handouts: *Surgery [facility] - ([facility]) Lap Carlos Fundiplication Post-Op Instructions, Acetaminophen (By mouth), Ibuprofen (By mouth), Laxative, Stool Softeners (By mouth) Discharge Disposition: HOME SELF-CARE
--- NOTE | 2022-07-22 14:26 | P.PN ---
Subjective Patient is status post Carlos fundoplication clinically doing well patient the is passing gas still has some soreness in the surgical site area. Patient denied any fever chills nausea vomiting abdominal pain. 07/22/2022 patient is clinically doing well still has some abdominal discomfort but better compared to yesterday passing gas is being discharged today. PHYSICAL EXAMINATION: GENERAL: The patient is alert and oriented x3, not in any acute distress. Well developed, well nourished. HEENT: Pupils are round and equally reacting to light. EOMI. No scleral icterus. No conjunctival pallor. Normocephalic, atraumatic. No pharyngeal erythema. No thyromegaly. CARDIOVASCULAR: S1 and S2 present. No murmurs, rubs, or gallops. PULMONARY: Chest is clear to auscultation, no wheezing or crackles. ABDOMEN: Soft, nontender, nondistended, normoactive bowel sounds. No palpable organomegaly. Surgical site area is clear MUSCULOSKELETAL: No joint swelling or deformity. EXTREMITIES: No cyanosis, clubbing, or pedal edema. NEUROLOGICAL: Gross neurological examination did not reveal any focal deficits. SKIN: No rashes. Assessment and plan -Gastroesophageal reflux disease status post Carlos fundoplication continue with proton pump inhibitor patient is able to tolerate liquid diet patient is medically stable to be discharged. -Type 2 diabetes mellitus patient was started on sliding scale insulin patient can resume her home regimen upon discharge -Bipolar disorder for which patient will be started on her home medications Objective - Vital Signs Vital signs: Vital Signs Temp 97.3 F L 07/22/22 07:45 Pulse 82 07/22/22 07:45 Resp 18 07/22/22 07:45 BP 115/76 07/22/22 07:45 Pulse Ox 98 07/22/22 07:45 FiO2 Intake & Output 07/21/22 07/22/22 07/22/22 18:59 06:59 18:59 Intake Total 1500 Balance 1500 Weight 88.5 kg Intake: Intake, IV Titration 1500 Amount D5-0.45% NaCl with KCl 1500 20Meq/l 1,000 ml @ 125 mls/hr IV .Q8H MONY Rx#: [id number] Other: Voiding Method Toilet # Voids 1
== END 2022-07-22 15:05 | disposition home or self-care (01) ==
LOC: OR 10:00 → 5NMEDONC 13:40 → OR 07-22 15:05
PROVIDERS: ATTEND Surgery
DX: K21.00 Gastro-esophageal reflux disease with esophagitis, without bleeding (principal); Z79.899 Other long term (current) drug therapy
CPT/HCPCS: 43280; J2250; J1100; J0690; J2405; J1650 ×2; J1170 ×3; J1644

== ENCOUNTER 2022-11-15 16:41 | Observation (INO) | payer OTHER ==
[2022-11-15 18:44] LABS: Appearance,Urine Cloudy (Clear); Bacteria,Urine Occasional /hpf; Bilirubin,Urine Negative (Negative); Blood,Urine Negative (Negative); Color,Urine Yellow; Glucose,Urine (UA) Negative (Negative); Ketones,Urine Negative (Negative); Leukocyte Esterase,Urine Large (Negative); Mucus,Urine Few /hpf; Nitrite,Urine Negative (Negative); PH, Urine 6.5 (5.0-8.0); Protein,Urine Trace (Negative); RBC,Urine 5 /hpf (0-5); Specific Gravity,Urine 1.025 (1.001-1.035); Squamous Epithelial Cell,Urine 8 /hpf (0-4); Urobilinogen,Urine <2.0 mg/dL (<2.0); WBC,Urine 11 /hpf (0-5)
[2022-11-15 20:12] LABS: Basophils % (A) 0 %; Eosinophils # (A) 0.1 k/uL (0-0.7); Eosinophils % (A) 1 %; HCT 39.9 % (34.0-46.0); HGB 13.3 gm/dL (11.4-16.0); Lymphocytes # (A) 2.2 k/uL (1.0-4.8); Lymphocytes % (A) 28 %; MCH 28.9 pg (25.0-35.0); MCHC 33.4 g/dL (31.0-37.0); MCV 86.8 fL (80.0-100.0); Mean Platelet Volume 9.5; Monocytes # (A) 0.3 k/uL (0-1.0); Monocytes % (A) 4 %; Neutrophils # (A) 5.2 k/uL (1.3-7.7); Neutrophils % (A) 65 %; Platelet Count 247 k/uL (150-450); RDW 12.5 % (11.5-15.5)
--- NOTE | 2022-11-15 20:25 | CT ---
EXAMINATION TYPE: CT abdomen pelvis wo con DATE OF EXAM: 11/15/2022 HISTORY: RLQ abd pain CT DLP: 756.1 mGycm. Automated Exposure Control for Dose Reduction was Utilized. TECHNIQUE: Departmental protocol. There is no cervical spine fracture or acute malalignment. COMPARISON: CT no acute process. Indistinctness changes/pleural spaces COMPARISON: 07/21/2015 FINDINGS: Within the limitations of a non-contrast study, the following observations are made. LUNG BASES: No significant abnormality is appreciated. LIVER/GB: No significant abnormality is appreciated. PANCREAS: No significant abnormality is seen. SPLEEN: No significant abnormality is seen. ADRENALS: No significant abnormality is seen. KIDNEYS, URETERS, BLADDER: No hydronephrosis or hydroureter. No renal or ureteral or bladder calcific ations. PERITONEAL CAVITY: No peritoneal fluid or pneumoperitoneum. BOWEL: No bowel dilation or focal inflammatory change. The colon is redundant and the pancolonic stoo l volume is moderately excessive. The appendix cannot be seen, likely related to the redundancy of th e colon, but there is no focal right lower quadrant inflammatory change. PELVIC VISCERA: Right ovary measures 3.5 cm. Left ovary measures 2 cm. There is no cul-de-sac fluid. LYMPH NODES: No abdominal or pelvic adenopathy. OSSEOUS STRUCTURES: No significant abnormality. Limitation of the study: Without IV contrast, there is limited sensitivity for focal visceral lesions , intraluminal filling defects, intravascular pathology. IMPRESSION: Prominent colonic redundancy and moderately excessive pancolonic stool volume.
[2022-11-15 20:31] LABS: ALT 20 U/L (4-34); AST 25 U/L (14-36); African American GFR (CKD) >90 (>60 ml/min/1.73 sqM); Albumin 4.5 g/dL (3.5-5.0); Alkaline Phosphatase 87 U/L (38-126); Anion Gap 14 mmol/L; Blood Urea Nitrogen 10 mg/dL (7-17); Calcium 9.3 mg/dL (8.4-10.2); Carbon Dioxide 17 mmol/L (22-30); Chloride 108 mmol/L (98-107); Glucose 88 mg/dL (74-99); Non-African American GFR(CKD) >90 (>60 ml/min/1.73 sqM); Potassium 3.8 mmol/L (3.5-5.1); Sodium 139 mmol/L (137-145); Total Bilirubin 0.4 mg/dL (0.2-1.3); Total Protein 7.7 g/dL (6.3-8.2)
[2022-11-15] MEDS ORDERED: NALOXONE 0.4 MG/ML 1 ML VIAL IV PRN (21:30)
[2022-11-15] MEDS ORDERED: MORPHINE SULFATE 4 MG/ML SYRINGE IV PRN (21:30)
--- NOTE | 2022-11-15 21:36 | ED ---
Abdominal Pain HPI - General Chief Complaint: Abdominal Pain Stated Complaint: appendicitis Time Seen by Provider: 11/15/22 20:30 Source: patient, RN notes reviewed, old records reviewed Mode of arrival: ambulatory Limitations: no limitations - History of Present Illness Initial Comments: This is a 32-year-old female to the emergency department for evaluation. Patient Dese for evaluation of abdominal pain right lower quadrant abdominal pain of sudden onset. Patient is a patient Dr. Mcintosh for gallbladder surgery and surgery for reflux, [id number] surgery. Patient states pain was severe with chills and but feels like a fever. Mild nausea no vomiting bowel movement was today decreased appetite. MD Complaint: abdominal pain (Right lower quadrant) -: hour(s) Location: RLQ Radiation: RLQ Migration to: suprapubic Severity: moderate Severity scale (1-10): 6 Quality: aching, sharp Consistency: constant Improves With: nothing Worsens With: nothing Associated Symptoms: nausea - Related Data Home Medications Medication Instructions Recorded Confirmed Isibloom Control Pill 1 tab PO HS 07/31/19 11/15/22 Prazosin [Minipress] 1 mg PO DAILY 03/29/22 11/15/22 Sertraline [Zoloft] 200 mg PO DAILY 03/29/22 11/15/22 Topiramate [Topamax] 100 mg PO DAILY 03/29/22 11/15/22 Meloxicam [Mobic] 15 mg PO DAILY PRN 11/15/22 11/15/22 Rizatriptan Benzoate [Rizatriptan] 10 mg PO DAILY PRN 11/15/22 11/15/22 Previous Rx's Medication Instructions Recorded oxyCODONE HCL [OxyIR] 5 mg PO Q6HR PRN #12 tab 11/19/22 Allergies Allergy/AdvReac Type Severity Reaction Status Date / Time azithromycin [From Zithromax] Allergy Rash/Hives Verified 11/15/22 21:30 morphine Allergy Chest Pain Verified 11/18/22 10:53 Penicillins AdvReac Nausea & Verified 11/15/22 21:30 Vomiting Review of Systems ROS Statement: Those systems with pertinent positive or pertinent negative responses have been documented in the HPI. ROS Other: All systems not noted in ROS Statement are negative. Past Medical History Past Medical History: Cancer, Diabetes Mellitus, GERD/Reflux, Musculoskeletal Disorder Additional Past Medical History / Comment(s): HX SKIN CANCER-BASAL CELL. HYPOGLYCEMIA. migraines, slipped disks in neck and some bulging History of Any Multi-Drug Resistant Organisms: None Reported Past Surgical History: Cholecystectomy Additional Past Surgical History / Comment(s): cyst removed from genital area, PAIN CLINIC PROCEDURES, recent EGD, arash funduloplasty 07/20/[address] mcintosh Past Anesthesia/Blood Transfusion Reactions: No Reported Reaction Additional Past Anesthesia/Blood Transfusion Reaction / Comment(s): SLOW TO WAKE UP FROM ANESTHESIA Past Psychological History: Anxiety, Bipolar, Depression, PTSD Smoking Status: Never smoker Past Alcohol Use History: Rare Past Drug Use History: None Reported - Past Family History Mother Family Medical History: No Reported History General Exam Limitations: no limitations General appearance: alert, in no apparent distress Head exam: Present: atraumatic, normocephalic, normal inspection Eye exam: Present: normal appearance, PERRL, EOMI. Absent: scleral icterus, conjunctival injection, periorbital swelling ENT exam: Present: normal exam, mucous membranes moist Neck exam: Present: normal inspection. Absent: tenderness, meningismus, lymphadenopathy Respiratory exam: Present: normal lung sounds bilaterally. Absent: respiratory distress, wheezes, rales, rhonchi, stridor Cardiovascular Exam: Present: regular rate, normal rhythm, normal heart sounds. Absent: systolic murmur, diastolic murmur, rubs, gallop, clicks GI/Abdominal exam: Present: soft, tenderness (right lower quadrant), guarding, normal bowel sounds. Absent: distended, rebound, rigid Extremities exam: Present: normal inspection, full ROM, normal capillary refill. Absent: tenderness, pedal edema, joint swelling, calf tenderness Back exam: Present: normal inspection Neurological exam: Present: alert, oriented X3, CN II-XII intact Psychiatric exam: Present: normal affect, normal mood Skin exam: Present: warm, dry, intact, normal color. Absent: rash Course Vital Signs 11/15/22 11/15/22 11/16/22 17:33 23:00 00:00 Temperature 98 F 98.2 F Pulse Rate 87 76 69 Respiratory 18 18 16 Rate Blood Pressure 137/89 115/81 123/81 O2 Sat by Pulse 100 100 99 Oximetry 05/12/23 05/12/23 05/12/23 01:00 02:00 03:02 Temperature Pulse Rate 71 73 66 Respiratory 16 16 16 Rate Blood Pressure 112/81 110/72 116/79 O2 Sat by Pulse Oximetry 11/16/22 11/16/22 11/16/22 04:00 05:00 07:00 Temperature Pulse Rate Respiratory Rate Blood Pressure 110/76 124/80 102/64 O2 Sat by Pulse Oximetry 11/16/22 07:01 Temperature 97.8 F Pulse Rate 78 Respiratory 16 Rate Blood Pressure O2 Sat by Pulse 98 Oximetry - Reevaluation(s) Reevaluation #1: 11/16/22 00:01 Medical record is reviewed Reevaluation #2: 11/16/22 00:01 Patient's pain is improved she did have anxiety attack after receiving pain medication Reevaluation #3: 11/16/22 00:02 Patient informed results questions answered Reevaluation #4: 11/16/22 00:02 Was pt. sent in by a medical professional or institution? @ -no Did you speak to anyone other than the patient for history? @ -no Did you review nursing and triage notes? @ -agree Were old charts reviewed? @ -no Differential Diagnosis? @ -prior EKG interpreted by me (3pts min.)? @ -yes X-rays interpreted by me (1pt min.)? @ -no CT interpreted by me (1pt min.)? @ -no U/S interpreted by me (1pt. min.)? @ -no What testing was considered but not performed? (CT, X-rays, U/S, labs)? Why? @ -no What meds were considered but not given? Why? @ -no Did you discuss the management of the patient with other professionals? @ -no Did you reconcile home meds? @ -no Was smoking cessation discussed for >3mins.? @ -no Was critical care preformed (if so, how long)? @ -no Were there social determinants of health that impacted care today? How? (H omelessness, low income, unemployed, alcoholism, drug addiction, transportation, low edu. Level, literacy, decrease access to med. care, half-way, rehab)? @ -no Was there de-escalation of care discussed even if they declined? (Discuss DNR or withdrawal of care, Hospice)? @ -no What co-morbidities impacted this encounter? (DM, HTN, Smoking, COPD, CAD, Cancer, CVA, Hep., AIDS, mental health diagnosis, sleep apnea, morbid obesity)? @ -none Was patient admitted / discharged? @ -dc Undiagnosed new problem with uncertain prognosis? @ -no Drug Therapy requiring intensive monitoring for toxicity (Heparin, Nitro, Insulin, Cardizem)? @ -no Were any procedures done? @ -no Diagnosis/symptom? @ -Abdominal pain rule out acute appendicitis Acute, or Chronic, or Acute on Chronic? @ -no Uncomplicated (without systemic symptoms) or Complicated (systemic symptoms)? @ -uncomplicated Side effects of treatment? @ -no Exacerbation, Progression, or Severe Exacerbation] @ -no Poses a threat to life or bodily function? @ -no Reevaluation #5: 11/16/22 00:02 Differential Abdominal Pain Women: Appendicitis, Cholecystitis, diverticulosis, ischemic bowel, pancreatitis, hepatitis, UTI, gastroenteritis, AAA, incarcerated hernia, bowel obstruction, constipation, inflammatory bowel, hepatitis, peptic ulcer disease, splenic infarction, perforated viscus, vulvitis, ovarian torsion, PID, kidney stone, placenta abruption, this is not meant to be an all-inclusive list - Consultations Consultation #1: Spoke with Dr. Hanson who agrees to admit the patient Medical Decision Making - Medical Decision Making 32 female to the emergency room. Patient be admitted for surgical evaluation and treatment regarding assumed appendicitis - Lab Data Result diagrams: 11/19/22 10:19 11/18/22 07:18 Lab Results 11/15/22 11/15/22 11/15/22 Range/Units 17:41 17:41 19:31 WBC 8.0 (3.8-10.6) k/uL RBC 4.60 (3.80-5.40) m/uL Hgb 13.3 (11.4-16.0) gm/dL Hct 39.9 (34.0-46.0) % MCV 86.8 (80.0-100.0) fL MCH 28.9 (25.0-35.0) pg MCHC 33.4 (31.0-37.0) g/dL RDW 12.5 (11.5-15.5) % Plt Count 247 (150-450) k/uL MPV 9.5 Neutrophils % 65 % Lymphocytes % 28 % Monocytes % 4 % Eosinophils % 1 % Basophils % 0 % Neutrophils # 5.2 (1.3-7.7) k/uL Lymphocytes # 2.2 (1.0-4.8) k/uL Monocytes # 0.3 (0-1.0) k/uL Eosinophils # 0.1 (0-0.7) k/uL Basophils # 0.0 (0-0.2) k/uL Sodium (137-145) mmol/L Potassium (3.5-5.1) mmol/L Chloride (98-107) mmol/L Carbon Dioxide (22-30) mmol/L Anion Gap mmol/L BUN (7-17) mg/dL Creatinine (0.52-1.04) mg/dL Est GFR (CKD-EPI)AfAm (>60 ml/min/1.73 sqM) Est GFR (CKD-EPI)NonAf (>60 ml/min/1.73 sqM) Glucose (74-99) mg/dL Calcium (8.4-10.2) mg/dL Total Bilirubin (0.2-1.3) mg/dL AST (14-36) U/L ALT (4-34) U/L Alkaline Phosphatase (38-126) U/L Total Protein (6.3-8.2) g/dL Albumin (3.5-5.0) g/dL Urine Color Yellow Urine Appearance Cloudy H (Clear) Urine pH 6.5 (5.0-8.0) Ur Specific [place] 1.025 (1.001-1.035) Urine Protein Trace H (Negative) Urine Glucose (UA) Negative (Negative) Urine Ketones Negative (Negative) Urine Blood Negative (Negative) Urine Nitrite Negative (Negative) Urine Bilirubin Negative (Negative) Urine Urobilinogen <2.0 (<2.0) mg/dL Ur Leukocyte Esterase Large H (Negative) Urine RBC 5 (0-5) /hpf Urine WBC 11 H (0-5) /hpf Ur Squamous Epith Cells 8 H (0-4) /hpf Urine Bacteria Occasional H (None) /hpf Urine Mucus Few H (None) /hpf Urine HCG, Qual Not Detected (Not Detectd) 11/15/22 Range/Units 19:31 WBC (3.8-10.6) k/uL RBC (3.80-5.40) m/uL Hgb (11.4-16.0) gm/dL Hct (34.0-46.0) % MCV (80.0-100.0) fL MCH (25.0-35.0) pg MCHC (31.0-37.0) g/dL RDW (11.5-15.5) % Plt Count (150-450) k/uL MPV Neutrophils % % Lymphocytes % % Monocytes % % Eosinophils % % Basophils % % Neutrophils # (1.3-7.7) k/uL Lymphocytes # (1.0-4.8) k/uL Monocytes # (0-1.0) k/uL Eosinophils # (0-0.7) k/uL Basophils # (0-0.2) k/uL Sodium 139 (137-145) mmol/L Potassium 3.8 (3.5-5.1) mmol/L Chloride 108 H (98-107) mmol/L Carbon Dioxide 17 L (22-30) mmol/L Anion Gap 14 mmol/L BUN 10 (7-17) mg/dL Creatinine 0.82 (0.52-1.04) mg/dL Est GFR (CKD-EPI)AfAm >90 (>60 ml/min/1.73 sqM) Est GFR (CKD-EPI)NonAf >90 (>60 ml/min/1.73 sqM) Glucose 88 (74-99) mg/dL Calcium 9.3 (8.4-10.2) mg/dL Total Bilirubin 0.4 (0.2-1.3) mg/dL AST 25 (14-36) U/L ALT 20 (4-34) U/L Alkaline Phosphatase 87 (38-126) U/L Total Protein 7.7 (6.3-8.2) g/dL Albumin 4.5 (3.5-5.0) g/dL Urine Color Urine Appearance (Clear) Urine pH (5.0-8.0) Ur Specific [place] (1.001-1.035) Urine Protein (Negative) Urine Glucose (UA) (Negative) Urine Ketones (Negative) Urine Blood (Negative) Urine Nitrite (Negative) Urine Bilirubin (Negative) Urine Urobilinogen (<2.0) mg/dL Ur Leukocyte Esterase (Negative) Urine RBC (0-5) /hpf Urine WBC (0-5) /hpf Ur Squamous Epith Cells (0-4) /hpf Urine Bacteria (None) /hpf Urine Mucus (None) /hpf Urine HCG, Qual (Not Detectd) - Radiology Data Radiology results: report reviewed (CT head and pelvis is negative for acute significant disease), image reviewed Disposition Clinical Impression: Abdominal pain, Acute appendicitis, Abdominal colic Disposition: ADMITTED IP TO THIS HOSP Condition: Stable Is patient prescribed a controlled substance at d/c from ED?: No Time of Disposition: 21:30
[2022-11-15] MEDS: SODIUM CHLORIDE 0.9% 1,000 ML IV SCH (22:28)
[2022-11-15] MEDS: ONDANSETRON 4 MG/2 ML VIAL IVP PRN (22:28)
[2022-11-15] MEDS ORDERED: LORazepam 2 MG/ML INJ IV STA ×2 (22:49→22:56)
[2022-11-15] MEDS ORDERED: diphenhydrAMINE 50 MG/ML 1 ML VIAL IVP STA (22:50)
[2022-11-15] MEDS ORDERED: metroNIDAZOLE-NS PMX 500 MG in SALINE 1 100ML.BAG IVPB STA (23:00)
--- NOTE | 2022-11-15 23:09 | XR ---
EXAM: XR Chest, 1 View CLINICAL HISTORY: ITS.REASON XR Reason: cp TECHNIQUE: Frontal view of the chest. COMPARISON: No relevant prior studies available. FINDINGS: Lungs: Unremarkable. No consolidation. Pleural space: Unremarkable. No pneumothorax. Heart: Cardiomegaly. Mediastinum: Unremarkable. Bones/joints: Unremarkable. IMPRESSION: No acute findings in the chest.
[2022-11-15] MEDS ORDERED: LEVOFLOXACIN 500MG-D5W PMX 500 MG in DEXTROSE/WATER 1 100ML.BAG IVPB ONE (23:15)
[2022-11-16] MEDS ORDERED: KETOROLAC 15 MG/ML 1 ML VIAL IVP STA (04:27)
[2022-11-16] MEDS: SODIUM CHLORIDE 0.9% 1,000 ML IV SCH ×3 (04:34→21:22)
[2022-11-16] MEDS: metroNIDAZOLE-NS PMX 500 MG in SALINE 1 100ML.BAG IVPB SCH ×3 (05:51→20:47)
[2022-11-16 08:04] LABS: Basophils % (A) 0 %; Eosinophils % (A) 1 %; HCT 35.2 % (34.0-46.0); HGB 11.6 gm/dL (11.4-16.0); Lymphocytes # (A) 1.4 k/uL (1.0-4.8); Lymphocytes % (A) 29 %; MCH 29.1 pg (25.0-35.0); Mean Platelet Volume 8.5; Monocytes # (A) 0.2 k/uL (0-1.0); Monocytes % (A) 5 %; Neutrophils # (A) 2.9 k/uL (1.3-7.7); Neutrophils % (A) 63 %; Platelet Count 204 k/uL (150-450); RDW 12.5 % (11.5-15.5); WBC 4.6 k/uL (3.8-10.6)
[2022-11-16 08:27] LABS: ALT 22 U/L (4-34); AST 25 U/L (14-36); African American GFR (CKD) >90 (>60 ml/min/1.73 sqM); Albumin 3.4 g/dL (3.5-5.0); Alkaline Phosphatase 70 U/L (38-126); Anion Gap 7 mmol/L; Blood Urea Nitrogen 9 mg/dL (7-17); Calcium 8.3 mg/dL (8.4-10.2); Carbon Dioxide 19 mmol/L (22-30); Chloride 111 mmol/L (98-107); Glucose 90 mg/dL (74-99); Lipase 406 U/L (23-300); Non-African American GFR(CKD) >90 (>60 ml/min/1.73 sqM); Phosphorus 2.9 mg/dL (2.5-4.5); Potassium 3.9 mmol/L (3.5-5.1); Sodium 137 mmol/L (137-145); Total Bilirubin 0.4 mg/dL (0.2-1.3); Total Protein 6.1 g/dL (6.3-8.2)
[2022-11-16] MEDS: PANTOPRAZOLE 40 MG/10 ML VIAL IV SCH (08:51)
[2022-11-16] MEDS ORDERED: HYDROmorphone 0.5 MG/0.5 ML SYRINGE IVP STA (11:18)
--- NOTE | 2022-11-16 14:08 | P.GSHP ---
History of Present Illness H&P Date: 11/16/22 Chief Complaint: right lower quadrant pain this is a 32-year-old female who was admitted through the emergency room plaints of right up Lower quadrant pain. Patient states she still has pain this morning. Patient states her last menses was 1 week ago. Past Medical History Past Medical History: Cancer, Diabetes Mellitus, GERD/Reflux, Musculoskeletal Disorder Additional Past Medical History / Comment(s): HX SKIN CANCER-BASAL CELL. HYPOGLYCEMIA. migraines, slipped disks in neck and some bulging History of Any Multi-Drug Resistant Organisms: None Reported Past Surgical History: Cholecystectomy Additional Past Surgical History / Comment(s): cyst removed from genital area, PAIN CLINIC PROCEDURES, recent EGD, arash funduloplasty 07/20/[address] mcintosh Past Anesthesia/Blood Transfusion Reactions: No Reported Reaction Additional Past Anesthesia/Blood Transfusion Reaction / Comment(s): SLOW TO WAKE UP FROM ANESTHESIA Past Psychological History: Anxiety, Bipolar, Depression, PTSD Smoking Status: Never smoker Past Alcohol Use History: Rare Past Drug Use History: None Reported - Past Family History Mother Family Medical History: No Reported History Medications and Allergies Home Medications Medication Instructions Recorded Confirmed Type Isibloom Control Pill 1 tab PO HS 07/31/19 11/15/22 History Prazosin [Minipress] 1 mg PO DAILY 03/29/22 11/15/22 History Sertraline [Zoloft] 200 mg PO DAILY 03/29/22 11/15/22 History Topiramate [Topamax] 100 mg PO DAILY 03/29/22 11/15/22 History Meloxicam [Mobic] 15 mg PO DAILY PRN 11/15/22 11/15/22 History Rizatriptan Benzoate [Rizatriptan] 10 mg PO DAILY PRN 11/15/22 11/15/22 History Allergies Allergy/AdvReac Type Severity Reaction Status Date / Time azithromycin [From Zithromax] Allergy Rash/Hives Verified 11/15/22 21:30 Penicillins AdvReac Nausea & Verified 11/15/22 21:30 Vomiting Surgical - Exam Vital Signs Temp Pulse Resp BP Pulse Ox 98 F 87 18 137/89 100 11/15/22 17:33 11/15/22 17:33 11/15/22 17:33 11/15/22 17:33 11/15/22 17:33 - General well developed, well nourished, no distress - Eyes PERRL - ENT normal pinna, normal nares - Neck no masses - Respiratory normal expansion - Abdomen Moderate right lower quadrant pain. Abdomen: soft Results - Labs 11/16/22 07:39 11/16/22 07:39 Abnormal Lab Results - Last 24 Hours (Table) 11/15/22 11/15/22 11/16/22 Range/Units 17:41 19:31 07:39 Chloride 108 H 111 H (98-107) mmol/L Carbon Dioxide 17 L 19 L (22-30) mmol/L Calcium 8.3 L (8.4-10.2) mg/dL Total Protein 6.1 L (6.3-8.2) g/dL Albumin 3.4 L (3.5-5.0) g/dL Lipase 406 H (23-300) U/L Urine Appearance Cloudy H (Clear) Urine Protein Trace H (Negative) Ur Leukocyte Esterase Large H (Negative) Urine WBC 11 H (0-5) /hpf Ur Squamous Epith Cells 8 H (0-4) /hpf Urine Bacteria Occasional H (None) /hpf Urine Mucus Few H (None) /hpf Microbiology - Last 24 Hours (Table) 11/15/22 17:41 Urine Culture - Preliminary Urine,Voided Diabetes panel 11/15/22 11/16/22 Range/Units 19:31 07:39 Sodium 139 137 (137-145) mmol/L Potassium 3.8 3.9 (3.5-5.1) mmol/L Chloride 108 H 111 H (98-107) mmol/L Carbon Dioxide 17 L 19 L (22-30) mmol/L BUN 10 9 (7-17) mg/dL Creatinine 0.82 0.85 (0.52-1.04) mg/dL Glucose 88 90 (74-99) mg/dL Calcium 9.3 8.3 L (8.4-10.2) mg/dL AST 25 25 (14-36) U/L ALT 20 22 (4-34) U/L Alkaline Phosphatase 87 70 (38-126) U/L Total Protein 7.7 6.1 L (6.3-8.2) g/dL Albumin 4.5 3.4 L (3.5-5.0) g/dL Calcium panel 11/15/22 11/16/22 Range/Units 19:31 07:39 Calcium 9.3 8.3 L (8.4-10.2) mg/dL Phosphorus 2.9 (2.5-4.5) mg/dL Albumin 4.5 3.4 L (3.5-5.0) g/dL Pituitary panel 11/15/22 11/16/22 Range/Units 19:31 07:39 Sodium 139 137 (137-145) mmol/L Potassium 3.8 3.9 (3.5-5.1) mmol/L Chloride 108 H 111 H (98-107) mmol/L Carbon Dioxide 17 L 19 L (22-30) mmol/L BUN 10 9 (7-17) mg/dL Creatinine 0.82 0.85 (0.52-1.04) mg/dL Glucose 88 90 (74-99) mg/dL Calcium 9.3 8.3 L (8.4-10.2) mg/dL Adrenal panel 11/15/22 11/16/22 Range/Units 19:31 07:39 Sodium 139 137 (137-145) mmol/L Potassium 3.8 3.9 (3.5-5.1) mmol/L Chloride 108 H 111 H (98-107) mmol/L Carbon Dioxide 17 L 19 L (22-30) mmol/L BUN 10 9 (7-17) mg/dL Creatinine 0.82 0.85 (0.52-1.04) mg/dL Glucose 88 90 (74-99) mg/dL Calcium 9.3 8.3 L (8.4-10.2) mg/dL Total Bilirubin 0.4 0.4 (0.2-1.3) mg/dL AST 25 25 (14-36) U/L ALT 20 22 (4-34) U/L Alkaline Phosphatase 87 70 (38-126) U/L Total Protein 7.7 6.1 L (6.3-8.2) g/dL Albumin 4.5 3.4 L (3.5-5.0) g/dL Assessment and Plan Assessment: Right lower quadrant pain. Doubt appendicitis. Patient will be observed. She will place on clear liquids. If she continues to have significant right lower quadrant pain. She may need diagnostic laparoscopy.
[2022-11-16] MEDS: PRAZOSIN 1 MG CAP PO SCH (20:47)
[2022-11-16] MEDS: SERTRALINE 100 MG TAB PO SCH (20:47)
[2022-11-16] MEDS: TOPIRAMATE 100 MG TAB PO SCH (20:47)
[2022-11-16] MEDS: HYDROmorphone 0.5 MG/0.5 ML SYRINGE IVP PRN (20:57)
[2022-11-16] MEDS: DOCUSATE 100 MG CAP PO SCH (21:22)
[2022-11-16] MEDS: ONDANSETRON 4 MG/2 ML VIAL IVP PRN (21:25)
[2022-11-16] MEDS: LEVOFLOXACIN 500MG-D5W PMX 500 MG in DEXTROSE/WATER 1 100ML.BAG IVPB SCH (23:04)
[2022-11-17] MEDS: HYDROmorphone 0.5 MG/0.5 ML SYRINGE IVP PRN ×4 (00:18→15:03)
[2022-11-17] MEDS: metroNIDAZOLE-NS PMX 500 MG in SALINE 1 100ML.BAG IVPB SCH ×4 (00:19→19:04)
[2022-11-17] MEDS: SODIUM CHLORIDE 0.9% 1,000 ML IV SCH (03:08)
[2022-11-17] MEDS: ONDANSETRON 4 MG/2 ML VIAL IVP PRN ×3 (05:15→23:09)
[2022-11-17] MEDS: SERTRALINE 100 MG TAB PO SCH (09:33)
[2022-11-17] MEDS: LACTATED RINGERS 1,000 ML IV SCH ×2 (09:33→21:45)
[2022-11-17] MEDS: PANTOPRAZOLE 40 MG/10 ML VIAL IV SCH (09:34)
--- NOTE | 2022-11-17 09:37 | P.PN ---
Progress Note - Text Progress Note Date: 11/17/22 The patient still has complaints of severe left lower quadrant pain requiring narcotic pain medication. On exam vital signs are stable. Abdomen soft. There is tenderness right lower quadrant. Possible early acute appendicitis. Patient undergo laparoscopic appendectomy of the duodenum.
[2022-11-17] MEDS: DOCUSATE 100 MG CAP PO SCH ×2 (09:49→21:44)
--- NOTE | 2022-11-17 13:57 | P.CONS ---
History of Present Illness - Reason for Consult Consult date: 11/17/22 medical management Requesting physician: Olu Mcintosh - History of Present Illness This is a pleasant 32 year old female with medical history of diabetes mellitus, gerd, migraines, cholecystectomy, recent arash fundloplasty, anxiety/depression/bipolar. Patient presents to the hospital with complaints of right lower quadrant abdominal pain with a sudden onset accompanied by fever/chills. Patient also reported nausea had no diarrhea or vomiting. Patient had abdominal pelvis CT done which reveals prominent colonic redundancy and moderately excessive pancolonic stool volume. There is no focal right lower quadrant inflammatory change. Negative chest xray. Patient is admitted to the hospital under general surgery for suspected appendicits and started on antibiotic therapy with IV levofloxacin and IV metronidazole. Patient has no elevated white count. Lipase is elevated at 406. Urinalysis is showing large leukocyte esterase. On exam patient has generalized abdominal tenderness mostly right lower quadrant. General surgery planning for laproscopic appendectomy for a possible early acute appendicitis. IV fluids have been changed to lactated ringers due to the hyperchloremia. REVIEW OF SYSTEMS: CONSTITUTIONAL: Reports fever/chills/malaise HEENT: No recent visual problems or hearing problems. Denied any sore throat. CARDIOVASCULAR: No chest pain, orthopnea, PND, no palpitations, no syncope. PULMONARY: No shortness of breath, no cough, no hemoptysis. GASTROINTESTINAL: Reports abdominal pain and tenderness . NEUROLOGICAL: No headaches, no weakness, no numbness. HEMATOLOGICAL: Denies any bleeding or petechiae. GENITOURINARY: Denies any burning micturition, frequency, or urgency. MUSCULOSKELETAL/RHEUMATOLOGICAL: Denies any joint pain, swelling, or any muscle pain. ENDOCRINE: Denies any polyuria or polydipsia. The rest of the 14-point review of systems is negative. PHYSICAL EXAMINATION: GENERAL: The patient is alert and oriented x3, not in any acute distress. Well developed, well nourished. HEENT: Pupils are round and equally reacting to light. EOMI. No scleral icterus. No conjunctival pallor. Normocephalic, atraumatic. No pharyngeal erythema. No thyromegaly. CARDIOVASCULAR: S1 and S2 present. No murmurs, rubs, or gallops. PULMONARY: Chest is clear to auscultation, no wheezing or crackles. ABDOMEN: Soft, tender, nondistended, normoactive bowel sounds. No palpable organomegaly. MUSCULOSKELETAL: No joint swelling or deformity. EXTREMITIES: No cyanosis, clubbing, or pedal edema. NEUROLOGICAL: Gross neurological examination did not reveal any focal deficits. SKIN: No rashes. Assessment and Plan Acute abdominal pain and tenderness possible early acute appendicitis patient scheduled to undergo laproscopic appendectomy tomorrow 11/18/2022. Patient remains on IV antibiotics. Clear liquid diet and supportive care. Hyperchloremia Abnormal urine likely from dehydration History of reflux disease with recent arash fundloplication History of cholecystectomy Diabetes Mellitus type 2 controlled Anxiety/Bipolar/Depression/PTSD Hx of basal cell skin ca GI prophylaxis DVT prophylaxis as per primary Full Code Plan Continue IV antibiotics Repeat BMP Resume appropriate home medications Incentive spirometer 10 x an hour while awake Continue pain management and all other supportive care The impression and plan of care has been dictated by Vaishnavi Espitia Nurse Practitioner as directed. Dr. Florentino MD I have performed a history and physical examination and medical decision making of this patient, discussed the same with the dictator, and agree with the dictators assessment and plan as written, documented as a scribe. Based on total visit time, I have performed more than 50% of this visit. Past Medical History Past Medical History: Cancer, Diabetes Mellitus, GERD/Reflux, Musculoskeletal Disorder Additional Past Medical History / Comment(s): HX SKIN CANCER-BASAL CELL. HYPOGLYCEMIA. migraines, slipped disks in neck and some bulging History of Any Multi-Drug Resistant Organisms: None Reported Past Surgical History: Cholecystectomy Additional Past Surgical History / Comment(s): cyst removed from genital area, PAIN CLINIC PROCEDURES, recent EGD, arash funduloplasty 07/20/[address] mcintosh Past Anesthesia/Blood Transfusion Reactions: No Reported Reaction Additional Past Anesthesia/Blood Transfusion Reaction / Comm: SLOW TO WAKE UP FROM ANESTHESIA Past Psychological History: Anxiety, Bipolar, Depression, PTSD Smoking Status: Never smoker Past Alcohol Use History: Rare Past Drug Use History: None Reported - Past Family History Mother Family Medical History: No Reported History Medications and Allergies Home Medications Medication Instructions Recorded Confirmed Type Isibloom Control Pill 1 tab PO HS 07/31/19 11/15/22 History Prazosin [Minipress] 1 mg PO DAILY 03/29/22 11/15/22 History Sertraline [Zoloft] 200 mg PO DAILY 03/29/22 11/15/22 History Topiramate [Topamax] 100 mg PO DAILY 03/29/22 11/15/22 History Meloxicam [Mobic] 15 mg PO DAILY PRN 11/15/22 11/15/22 History Rizatriptan Benzoate [Rizatriptan] 10 mg PO DAILY PRN 11/15/22 11/15/22 History Allergies Allergy/AdvReac Type Severity Reaction Status Date / Time azithromycin [From Zithromax] Allergy Rash/Hives Verified 11/15/22 21:30 Penicillins AdvReac Nausea & Verified 11/15/22 21:30 Vomiting Physical Exam Vitals: Vital Signs Temp Pulse Resp BP Pulse Ox 11/17/22 07:13 97.9 F 88 18 134/77 99 11/17/22 02:59 98.5 F 79 17 111/71 95 11/16/22 20:19 98.2 F 74 18 127/84 98 11/16/22 15:00 98.1 F 70 16 105/77 99 Intake and Output 11/16/22 11/17/22 11/17/22 22:59 06:59 14:59 Other: # Voids 2 1 Results CBC & Chem 7: 11/16/22 07:39 11/16/22 07:39 Labs: Microbiology - Last 24 Hours (Table) 11/15/22 17:41 Urine Culture - Final Urine,Voided Assessment and Plan Time with Patient: Less than 30
[2022-11-17] MEDS: ACETAMINOPHEN TAB 325 MG TAB PO PRN (19:49)
[2022-11-17] MEDS: PROCHLORPERAZINE INJ 10 MG/2 ML VIAL IVP PRN (19:58)
[2022-11-17] MEDS: TOPIRAMATE 100 MG TAB PO SCH (21:44)
[2022-11-17] MEDS: PRAZOSIN 1 MG CAP PO SCH (21:44)
[2022-11-17] MEDS: LEVOFLOXACIN 500MG-D5W PMX 500 MG in DEXTROSE/WATER 1 100ML.BAG IVPB SCH (23:09)
[2022-11-18] MEDS: metroNIDAZOLE-NS PMX 500 MG in SALINE 1 100ML.BAG IVPB SCH ×5 (00:21→23:47)
[2022-11-18] MEDS: HYDROmorphone 0.5 MG/0.5 ML SYRINGE IVP PRN ×4 (04:36→20:52)
[2022-11-18] MEDS: DOCUSATE 100 MG CAP PO SCH ×2 (08:26→20:51)
[2022-11-18] MEDS: PANTOPRAZOLE 40 MG/10 ML VIAL IV SCH (08:27)
[2022-11-18] MEDS: ONDANSETRON 4 MG/2 ML VIAL IVP PRN ×2 (08:27→20:52)
[2022-11-18] MEDS: SERTRALINE 100 MG TAB PO SCH (08:27)
[2022-11-18 10:14] LABS: Potassium 3.7 mmol/L (3.5-5.1)
[2022-11-18 10:15] LABS: African American GFR (CKD) >90 (>60 ml/min/1.73 sqM); Anion Gap 9 mmol/L; Blood Urea Nitrogen 5 mg/dL (7-17); Carbon Dioxide 23 mmol/L (22-30); Chloride 108 mmol/L (98-107); Glucose 92 mg/dL (74-99); Non-African American GFR(CKD) 87 (>60 ml/min/1.73 sqM); Sodium 140 mmol/L (137-145)
[2022-11-18 11:04] LABS: Glucose,Whole Blood 101 mg/dL (70-110)
[2022-11-18] MEDS ORDERED: LACTATED RINGERS 1,000 ML IV ONE ×2 (11:14→12:10)
[2022-11-18] MEDS ORDERED: DEXAMETHASONE SOD PHOSPHATE 4 MG/ML 1 ML VIAL IVP ONE (11:16)
[2022-11-18] MEDS ORDERED: HEPARIN SODIUM,PORCINE 5,000 UNIT/ML 1 ML VIAL SQ ONE (11:16)
[2022-11-18] MEDS ORDERED: BUPIVACAINE (PF) 0.25% 30 ML VIAL SQ ONE ×2 (11:22→11:44)
[2022-11-18] MEDS ORDERED: PROPOFOL 10 MG/ML 20 ML VIAL IV ONE (11:30)
[2022-11-18] MEDS ORDERED: SODIUM CHLORIDE 0.9% 100 ML with ceFAZolin 2,000 MG IV ONE ×2 (11:30)
[2022-11-18] MEDS ORDERED: SUCCINYLCHOLINE CHLORIDE 200 MG/10 ML VIAL IV ONE (11:30)
[2022-11-18] MEDS ORDERED: MIDAZOLAM 2 MG/2 ML VIAL ONE (11:30)
[2022-11-18] MEDS ORDERED: fentaNYL (PF) 50 MCG/ML 2 ML AMP ONE (11:30)
[2022-11-18] MEDS ORDERED: KETOROLAC 15 MG/ML 1 ML VIAL ONE (11:30)
--- NOTE | 2022-11-18 12:12 | P.OP ---
Date of Procedure: 11/18/22 Preoperative Diagnosis: Appendicitis Postoperative Diagnosis: Appendicitis Right ovarian cyst Procedure(s) Performed: Laparoscopic appendectomy Right ovarian cystectomy Anesthesia: CITLALI Surgeon: Olu Shipley Estimated Blood Loss (ml): 5 Pathology: other (Appendix) Condition: stable Disposition: PACU Description of Procedure: The patient's placed on the operating table in the supine position. The patient received general anesthesia. The abdomen was prepped and draped in the usual sterile fashion. The skin was anesthetized 1% local Xylocaine at the trocar sites. Using an 11 blade the skin was incised at the umbilicus. The umbilicus was grasped with a Burton clamp and then a Veress needle was placed into the peritoneal cavity. Position of the Veress needle was confirmed with positive drop test. After adequate insufflation a 5 mm trocar was placed into the peritoneal cavity. The abdomen was further insufflated. And then the laparoscope was placed in the peritoneal cavity. Next a 5 mm trocar was placed in the midline suprapubic position. And then a 10 mm trocar was placed in the midline epigastric position. The patient was rotated with the right side up and in Trendelenburg. The appendix was visualized. The appendix appeared to be mildly inflamed. The appendix was grasped and then using the Harmonic scissors the mesoappendix was divided. A PDS Endoloop was then placed around the base of the appendix. And then the appendix was divided using Harmonic scissors. The appendix was placed into an Endo Catch and brought out through the 10 mm trocar site. The abdomen was irrigated. There is no bleeding seen. The right ovary was examined. There was a 4 cm cyst the right ovary. A right ovarian cystectomy was performed using the Harmonic scissors. There is no bleeding seen from the ovary. The trochars withdrawn. The skin was closed interrupted 3-0 Monocryl suture. Dermabond dressing was applied. Patient was sent to recovery room in stable condition.
[2022-11-18] MEDS: LACTATED RINGERS 1,000 ML IV SCH (12:29)
[2022-11-18] MEDS ORDERED: POTASSIUM CHLORIDE ER 20 MEQ TAB.ER PO STA (13:20)
--- NOTE | 2022-11-18 13:21 | P.PN ---
Subjective Progress Note Date: 11/18/22 This is a pleasant 32 year old female with medical history of diabetes mellitus, gerd, migraines, cholecystectomy, recent arash fundloplasty, anxiety/depression/bipolar. Patient presents to the hospital with complaints of right lower quadrant abdominal pain with a sudden onset accompanied by fever/chills. Patient also reported nausea had no diarrhea or vomiting. Patient had abdominal pelvis CT done which reveals prominent colonic redundancy and moderately excessive pancolonic stool volume. There is no focal right lower quadrant inflammatory change. Negative chest xray. Patient is admitted to the hospital under general surgery for suspected appendicits and started on antibiotic therapy with IV levofloxacin and IV metronidazole. Patient has no elevated white count. Lipase is elevated at 406. Urinalysis is showing large leukocyte esterase. On exam patient has generalized abdominal tenderness mostly right lower quadrant. General surgery planning for laproscopic appendectomy for a possible early acute appendicitis. IV fluids have been changed to lactated ringers due to the hyperchloremia. 11/18/2022 Patient is evaluated today postoperative laproscopic appendectomy. Patient was also found to have a large ovarian cyst on the right sided which was surgically resected. Patient has improvement in nausea. Was given compazine overnight in addition to zofran. Patient is tolerating clear liquid diet currently and advancing to regular as tolerated. Remains on IV levaquin and IV flagyl. Afebrile and on room air. Family is at bedside and all questions answered. Review of Systems Constitutional: Denied any fatigue denied any fever. Cardio vascular: denied any chest pain, palpitations Gastrointestinal: Reports improved nausea. Pulmonary: Denied any shortness of breath cough Neurologic denied any new focal deficits All inpatient medications were reviewed and appropriate changes in these medications as dictated in the interval history and assessment and plan. PHYSICAL EXAMINATION: GENERAL: The patient is alert and oriented x3, not in any acute distress. Well developed, well nourished. HEENT: Pupils are round and equally reacting to light. EOMI. No scleral icterus. No conjunctival pallor. Normocephalic, atraumatic. No pharyngeal erythema. No thyromegaly. CARDIOVASCULAR: S1 and S2 present. No murmurs, rubs, or gallops. PULMONARY: Chest is clear to auscultation, no wheezing or crackles. ABDOMEN: Soft, tender, nondistended, normoactive bowel sounds. No palpable organomegaly. Post surgical abdomen. MUSCULOSKELETAL: No joint swelling or deformity. EXTREMITIES: No cyanosis, clubbing, or pedal edema. NEUROLOGICAL: Gross neurological examination did not reveal any focal deficits. SKIN: No rashes. Assessment and Plan Acute abdominal pain and tenderness possible early acute appendicitis status post laproscopic appendectomy and right ovarian cystectomy. Hyperchloremia Abnormal urine likely from dehydration urine culture is negative. History of reflux disease with recent arash fundloplication History of cholecystectomy Diabetes Mellitus type 2 controlled Anxiety/Bipolar/Depression/PTSD Hx of basal cell skin ca GI prophylaxis DVT prophylaxis as per primary Full Code Plan Continue IV antibiotics Repeat BMP Incentive spirometer 10 x an hour while awake Continue pain management and all other supportive care The impression and plan of care has been dictated by Vaishnavi Espitia, Nurse Practitioner as directed. Dr. Florentino MD I have performed a history and physical examination and medical decision making of this patient, discussed the same with the dictator, and agree with the dictators assessment and plan as written, documented as a scribe. Based on total visit time, I have performed more than 50% of this visit. Objective - Vital Signs Vital signs: Vital Signs Temp 97.8 F 11/18/22 12:10 Pulse 88 11/18/22 12:41 Resp 20 11/18/22 12:41 BP 136/89 11/18/22 12:41 Pulse Ox 96 11/18/22 12:41 FiO2 Intake & Output 11/17/22 11/18/22 11/18/22 18:59 06:59 18:59 Intake Total 1300 Balance 1300 Intake: IV 1300 Other: # Voids 4 2 - Labs CBC & Chem 7: 11/16/22 07:39 11/18/22 07:18 Labs: Abnormal Lab Results - Last 24 Hours (Table) 11/18/22 Range/Units 07:18 Chloride 108 H (98-107) mmol/L BUN 5 L (7-17) mg/dL Assessment and Plan Time with Patient: Less than 30
[2022-11-18] MEDS ORDERED: POTASSIUM BICARB-CITRIC ACID 25 MEQ TABLET.EFF PO STA (13:26)
[2022-11-18] MEDS: PRAZOSIN 1 MG CAP PO SCH (20:51)
[2022-11-18] MEDS: TOPIRAMATE 100 MG TAB PO SCH (20:51)
[2022-11-18] MEDS: LEVOFLOXACIN 500MG-D5W PMX 500 MG in DEXTROSE/WATER 1 100ML.BAG IVPB SCH (23:48)
[2022-11-19] MEDS: HYDROmorphone 0.5 MG/0.5 ML SYRINGE IVP PRN (01:07)
[2022-11-19] MEDS: PROCHLORPERAZINE INJ 10 MG/2 ML VIAL IVP PRN (01:24)
[2022-11-19] MEDS: LACTATED RINGERS 1,000 ML IV SCH (01:41)
[2022-11-19 07:59] VITALS: RESP 16
[2022-11-19] MEDS: metroNIDAZOLE-NS PMX 500 MG in SALINE 1 100ML.BAG IVPB SCH ×2 (08:24→13:33)
[2022-11-19] MEDS: PANTOPRAZOLE 40 MG/10 ML VIAL IV SCH (08:25)
[2022-11-19] MEDS: SERTRALINE 100 MG TAB PO SCH (08:25)
[2022-11-19] MEDS: DOCUSATE 100 MG CAP PO SCH (08:25)
[2022-11-19] MEDS: ACETAMINOPHEN TAB 325 MG TAB PO PRN (10:21)
[2022-11-19 10:31] LABS: HCT 34.2 % (34.0-46.0); HGB 11.5 gm/dL (11.4-16.0); MCH 29.6 pg (25.0-35.0); MCHC 33.7 g/dL (31.0-37.0); MCV 87.8 fL (80.0-100.0); Mean Platelet Volume 8.8; Platelet Count 196 k/uL (150-450); RBC 3.89 m/uL (3.80-5.40); RDW 12.7 % (11.5-15.5); WBC 5.8 k/uL (3.8-10.6)
--- NOTE | 2022-11-19 14:28 | P.DS ---
Providers Date of admission: 11/15/22 21:35 Expected date of discharge: 11/19/22 Attending physician: Olu Shipley Consults: 11/16/22 14:08 Consult Physician Routine Consulting Provider: Fran Marr Consult Reason/Comments: medical management Do you want consulting provider notified?: Yes Primary care physician: Krei Garcia Hospital Course: Discharge diagnosis 1. Acute appendicitis and right ovarian cyst status post laparoscopic appendectomy and right ovarian cystectomy Hospital course This is a 32-year-old female who presented with right lower quadrant abdominal pain and diagnosed with acute appendicitis. Patient is status post laparoscopic appendectomy and right ovarian cystectomy. Patient tolerated surgery well. Her pain is controlled. She is tolerating diet. She is having flatus. She has been up and ambulating. She is afebrile. She is stable for discharge. Please refer to chart for any further details. Physician Furnace Installer note has been reviewed by physician. Signing provider agrees with the documented findings, assessment, and plan of care. Patient Condition at Discharge: Stable Plan - Discharge Summary Discharge Rx Participant: No New Discharge Prescriptions: New oxyCODONE HCL [OxyIR] 5 mg PO Q6HR PRN #12 tab PRN Reason: Pain Continue Isibloom Control Pill 1 tab PO HS Topiramate [Topamax] 100 mg PO DAILY Sertraline [Zoloft] 200 mg PO DAILY Prazosin [Minipress] 1 mg PO DAILY Rizatriptan Benzoate [Rizatriptan] 10 mg PO DAILY PRN PRN Reason: Migraine Headache Meloxicam [Mobic] 15 mg PO DAILY PRN PRN Reason: Pain Discharge Medication List Isibloom Control Pill 1 tab PO HS 07/31/19 [History] Prazosin [Minipress] 1 mg PO DAILY 03/29/22 [History] Sertraline [Zoloft] 200 mg PO DAILY 03/29/22 [History] Topiramate [Topamax] 100 mg PO DAILY 03/29/22 [History] Meloxicam [Mobic] 15 mg PO DAILY PRN 11/15/22 [History] Rizatriptan Benzoate [Rizatriptan] 10 mg PO DAILY PRN 11/15/22 [History] oxyCODONE HCL [OxyIR] 5 mg PO Q6HR PRN #12 tab 11/19/22 [Rx] Follow up Appointment(s)/Referral(s): Geovanna Leija MD [STAFF PHYSICIAN] - 1 Week Fran Marr MD [STAFF PHYSICIAN] - 1 Week Olu Shipley MD [STAFF PHYSICIAN] - 1 Week Activity/Diet/Wound Care/Special Instructions: No driving while taking OxyIR No lifting over 10 pounds Shower daily. No soaking or tub baths for 2 weeks Very light activity until you are reevaluated at your follow up appointment with your surgeon Discharge Disposition: HOME SELF-CARE
[2022-11-19 15:29] VITALS: BP 126/85; PULSE 73; TEMP 98.8
--- NOTE | 2022-11-19 16:33 | P.PN ---
Subjective Progress Note Date: 11/19/22 This is a 32-year-old female admitted with acute appendicitis, right ovarian cyst, status post laparoscopic appendectomy and right ovarian cystectomy. Significant clinical improvement. Tolerating regular diet, no nausea, vomiting or diarrhea. Passing flatus, reports no bowel movement. Mild residual abd ominal tenderness, pain controlled. Occasional vaginal bleeding, hemoglobin 11.5. Denies lightheadedness dizziness or focal deficits. Afebrile, normal WBC. Denies chest pain, palpitations or shortness of breath. Maintaining O2 sats in the high 90s on room air. Objective - Vital Signs Vital signs: Vital Signs Temp 98.8 F 11/19/22 15:00 Pulse 73 11/19/22 15:00 Resp 16 11/19/22 15:00 BP 126/85 11/19/22 15:00 Pulse Ox 98 11/19/22 15:00 FiO2 Intake & Output 11/18/22 11/19/22 11/19/22 18:59 06:59 18:59 Intake Total 1300 118 Balance 1300 118 Intake: IV 1300 Oral 118 Other: # Voids 3 1 1 - Exam GENERAL: alert and oriented x3, no acute distress. HEENT: Normocephalic, atraumatic,Pupils are round and equally reacting to light. EOMI. No scleral icterus. No conjunctival pallor. CARDIOVASCULAR: Regular S1 and S2 present. No murmurs, rubs, or gallops. No edema PULMONARY: Unlabored, Chest is clear to auscultation, no wheezing or crackles. ABDOMEN: Soft, status post surgery, positive bowel sounds NEUROLOGICAL: Cranial nerves II through XII grossly intact, no focal deficits. SKIN: No rashes, warm and dry. - Labs CBC & Chem 7: 11/19/22 10:19 11/18/22 07:18 Assessment and Plan Assessment: Acute abdominal pain and tenderness possible early acute appendicitis status post laproscopic appendectomy and right ovarian cystectomy. Hyperchloremia GERDS with recent arash fundloplication History of cholecystectomy Diabetes Mellitus type 2 controlled Anxiety/Bipolar/Depression/PTSD Hx of basal cell skin ca Plan: Continue on current medication regime ,monitoring and symptomatic treatment. Medically cleared for discharge. Patient has been advised to follow up with her BUSINESS DEVELOPMENT ASSISTANT within 1 week. Follow-up with PCP in one week. Discharge planning in progress as per primary. The impression and plan of care has been dictated as directed. : I performed a history and examination of this patient, discussed the same with the dictator. I agree with the dictator's note ,documented as a scribe. Any additional findings or plans will be noted.
== END 2022-11-19 15:51 | disposition home or self-care (01) ==
LOC: EC 16:41 → 6NMEDSUR 21:35
PROVIDERS: ADMIT Surgery; ATTEND Surgery
DX: K35.80 Unspecified acute appendicitis (principal); N83.201 Unspecified ovarian cyst, right side; E11.9 Type 2 diabetes mellitus without complications; F41.9 Anxiety disorder, unspecified; T40.2X5A Adverse effect of other opioids, initial encounter; K21.9 Gastro-esophageal reflux disease without esophagitis; G43.909 Migraine, unspecified, not intractable, without status migrainosus; M50.20 Other cervical disc displacement, unspecified cervical region; Q43.8 Other specified congenital malformations of intestine; R74.8 Abnormal levels of other serum enzymes; F31.9 Bipolar disorder, unspecified; F43.10 Post-traumatic stress disorder, unspecified; E87.8 Other disorders of electrolyte and fluid balance, not elsewhere classified; Z79.1 Long term (current) use of non-steroidal anti-inflammatories (NSAID); Z79.3 Long term (current) use of hormonal contraceptives; Z79.899 Other long term (current) drug therapy; Z90.49 Acquired absence of other specified parts of digestive tract; Z88.0 Allergy status to penicillin; Z88.1 Allergy status to other antibiotic agents; Z88.5 Allergy status to narcotic agent; Z85.828 Personal history of other malignant neoplasm of skin; Z98.890 Other specified postprocedural states
CPT/HCPCS: 96376 ×4; 96375 ×4; 96374; 99285; 36415; 88304; 80053 ×2; 80048; 83690; 83735; 84100; 85025 ×2; 85027; 81001; 81025; 87086; 71045; 74176; 44970; G0378 ×5; J2250; J0330; J2060; J2270; J1200; J0780 ×2; J1644; J1100; J2405 ×4; J0690; J1956 ×3; J3010; J1885 ×2; J2704; C9113 ×4; J1170 ×4

== ENCOUNTER → 2023-05-17 | Outpatient (CLI) | payer OTHER ==
[2023-05-17 16:12] LABS: ALT 13 U/L (8-44); AST 13 U/L (13-35); Albumin 4.7 g/dL (3.8-4.9); Albumin/Globulin Ratio 1.47 Ratio (1.60-3.17); Alkaline Phosphatase 88 U/L (41-126); Blood Urea Nitrogen 7.6 mg/dL (9.0-27.0); Calcium 10.3 mg/dL (8.7-10.3); Carbon Dioxide 21.5 mmol/L (21.6-31.8); Chloride 105 mmol/L (96-109); Globulin 3.2 g/dL (1.6-3.3); Glucose 96 mg/dL (70-110); Potassium 4.1 mmol/L (3.5-5.5); Sodium 139 mmol/L (135-145); Total Bilirubin <0.2 mg/dL (0.3-1.2); Total Protein 7.9 g/dL (6.2-8.2)
[2023-05-17 16:13] LABS: Basophils # (A) 0.02 X 10*3/uL (0.00-0.10); Basophils % (A) 0.2 %; Eosinophils # (A) 0.14 X 10*3/uL (0.04-0.35); Eosinophils % (A) 1.5 %; HCT 40.1 % (37.2-46.3); HGB 13.3 g/dL (12.0-15.0); Lymphocytes # (A) 3.51 X 10*3/uL (0.90-5.00); Lymphocytes % (A) 36.9 %; MCH 29.2 pg (27.0-32.0); MCHC 33.2 g/dL (32.0-37.0); MCV 88.1 FL (80.0-97.0); Mean Platelet Volume 11.1 FL (9.5-12.2); Monocytes # (A) 0.55 X 10*3/uL (0.20-1.00); Monocytes % (A) 5.8 %; NRBC Per 100 WBC 0 X 10*3/uL (0.00-0.01); Neutrophils # (A) 5.24 X 10*3/uL (1.80-7.70); Neutrophils % (A) 55.2 %; Platelet Count 317 X 10*3/uL (140-440); RBC 4.55 X 10*6/uL (4.10-5.20); RDW 12.3 % (11.5-14.5)
[2023-05-17 16:43] LABS: Erythrocyte Sedimentation Rate 15 mm/Hr (0-20)
[2023-05-17 17:37] LABS: Gliadin AB IgA, Deaminated Negative (Negative); Gliadin AB IgA, Unit <0.5 U/mL; Gliadin AB IgG, Deaminated Negative (Negative); Gliadin AB IgG, Unit <0.4 U/mL
== END | disposition home or self-care (01) ==
LOC: LABWHC1 10:13
PROVIDERS: ATTEND Internal Medicine Gastroenterology
DX: R19.4 Change in bowel habit (principal)
CPT/HCPCS: 36415; 80053; 83516; 85025; 85652; 86140

== ENCOUNTER 2024-09-24 02:51 | Emergency (ER) | payer OTHER ==
[2024-09-24] MEDS: DIPH,PERTUS(ACELL)TETVAC-LF 0.5 ML VIAL IM ONE (03:19)
--- NOTE | 2024-09-24 03:26 | ED ---
Wound/Laceration HPI - General Chief Complaint: Wound/Laceration Stated Complaint: [facility]-Laceration to rt hand Time Seen by Provider: 09/24/24 02:57 Source: patient Mode of arrival: ambulatory Limitations: no limitations - History of Present Illness Initial Comments: 73-year-old female presenting with chief complaint of laceration. Patient works as a tech here at the hospital. She cut her hand on a metal container holding gloves on the wall. She has a small laceration to the distal end of the right third digit. No bleeding. Unsure when her last tetanus was. Full range of motion and sensation. This is more of an avulsion than a laceration. - Related Data Home Medications Medication Instructions Recorded Confirmed Isibloom Control Pill 1 tab PO HS 07/31/19 11/15/22 Prazosin [Minipress] 1 mg PO DAILY 03/29/22 11/15/22 Sertraline [Zoloft] 200 mg PO DAILY 03/29/22 11/15/22 Topiramate [Topamax] 100 mg PO DAILY 03/29/22 11/15/22 Meloxicam [Mobic] 15 mg PO DAILY PRN 11/15/22 11/15/22 Rizatriptan Benzoate [Rizatriptan] 10 mg PO DAILY PRN 11/15/22 11/15/22 Previous Rx's Medication Instructions Recorded oxyCODONE HCL [OxyIR] 5 mg PO Q6HR PRN #12 tab 11/19/22 Allergies Allergy/AdvReac Type Severity Reaction Status Date / Time azithromycin [From Zithromax] Allergy Rash/Hives Verified 09/24/24 02:53 morphine Allergy Chest Pain Verified 09/24/24 02:53 Penicillins AdvReac Nausea & Verified 09/24/24 02:53 Vomiting Review of Systems ROS Statement: Those systems with pertinent positive or pertinent negative responses have been documented in the HPI. ROS Other: All systems not noted in ROS Statement are negative. Past Medical History Past Medical History: Cancer, Diabetes Mellitus, GERD/Reflux, Musculoskeletal Disorder Additional Past Medical History / Comment(s): HX SKIN CANCER-BASAL CELL. HYPOGLYCEMIA. migraines, slipped disks in neck and some bulging History of Any Multi-Drug Resistant Organisms: None Reported Past Surgical History: Cholecystectomy Additional Past Surgical History / Comment(s): cyst removed from genital area, PAIN CLINIC PROCEDURES, recent EGD, arash funduloplasty 07/20/[address] mcintosh Past Anesthesia/Blood Transfusion Reactions: No Reported Reaction Additional Past Anesthesia/Blood Transfusion Reaction / Comment(s): SLOW TO WAKE UP FROM ANESTHESIA Past Psychological History: Anxiety, Bipolar, Depression, PTSD Smoking Status: Never smoker Past Alcohol Use History: Rare Past Drug Use History: None Reported - Past Family History Mother Family Medical History: No Reported History General Exam Limitations: no limitations General appearance: alert, in no apparent distress Head exam: Present: atraumatic, normocephalic, normal inspection Eye exam: Present: normal appearance, EOMI Neck exam: Present: normal inspection. Absent: meningismus Respiratory exam: Absent: respiratory distress Neurological exam: Present: alert, oriented X3 Psychiatric exam: Present: normal affect, normal mood Expanded Type of lesion: Present: laceration (Small skin avulsion to the right third digit) Course Vital Signs 09/24/24 02:53 Temperature 97.8 F Pulse Rate 106 H Respiratory 16 Rate Blood Pressure 154/98 O2 Sat by Pulse 100 Oximetry Medical Decision Making - Medical Decision Making Was pt. sent in by a medical professional or institution (, PA, CLINICAL ACCOUNT LIAISON, urgent care, hospital, or half-way...) When possible be specific @ -No Did you speak to anyone other than the patient for history (EMS, parent, family, police, friend...)? What history was obtained from this source @ -No Did you review nursing and triage notes (agree or disagree)? Why? @ -I reviewed and agree with nursing and triage notes Were old charts reviewed (outside hosp., previous admission, EMS record, old EKG, old radiological studies, urgent care reports/EKG's, half-way records)? Report findings @ -No old charts were reviewed Differential Diagnosis (chest pain, altered mental status, abdominal pain women, abdominal pain men, vaginal bleeding, weakness, fever, dyspnea, syncope, headache, dizziness, GI bleed, back pain, seizure, CVA, palpatations, mental health, musculoskeletal)? @ -Not applicable EKG interpreted by me (3pts min.). @ -As above X-rays interpreted by me (1pt min.). @ -None done CT interpreted by me (1pt min.). @ -None done U/S interpreted by me (1pt. min.). @ -None done What testing was considered but not performed or refused? (CT, X-rays, U/S, labs)? Why? @ -None What meds were considered but not given or refused? Why? @ -None Did you discuss the management of the patient with other professionals (professionals i.e. , PA, CLINICAL ACCOUNT LIAISON, lab, RT, psych nurse, high school social studies teacher, peoplesoft developer, teacher, navy senior officer, classification case manager)? Give summary @ -No Was smoking cessation discussed for >3mins.? @ -No Was critical care preformed (if so, how long)? @ -No Were there social determinants of health that impacted care today? How? (Homelessness, low income, unemployed, alcoholism, drug addiction, transportation, low edu. Level, literacy, decrease access to med. care, intermediate, rehab)? @ -No Was there de-escalation of care discussed even if they declined (Discuss DNR or withdrawal of care, Hospice)? DNR status @ -No What co-morbidities impacted this encounter? (DM, HTN, Smoking, COPD, CAD, Cancer, CVA, ARF, Chemo, Hep., AIDS, mental health diagnosis, sleep apnea, morbid obesity)? @ -None Was patient admitted / discharged? Hospital course, mention meds given and route, prescriptions, significant lab abnormalities, going to OR and other pertinent info. @ -33-year-old female presenting with chief complaint of laceration. This happened while she was at work here at the hospital. She has a small skin avulsion to the right third digit at the distal end. Gelfoam was placed over the area and Band-Aids applied. Patient educated on wound care and signs of infection. Tetanus is updated. Follow-up with PCP. Report back to ER with any new or worsening symptoms. Discussed return parameters and answered all questions. Patient conveyed verbal understanding and agreed to the plan. I discussed this case in detail with my attending Dr. Mendez Undiagnosed new problem with uncertain prognosis? @ -No Drug Therapy requiring intensive monitoring for toxicity (Heparin, Nitro, Insulin, Cardizem)? @ -No Were any procedures done? @ -No Diagnosis/symptom? @ -Laceration Acute, or Chronic, or Acute on Chronic? @ -Acute Uncomplicated (without systemic symptoms) or Complicated (systemic symptoms)? @ -Uncomplicated Side effects of treatment? @ -No Exacerbation, Progression, or Severe Exacerbation? @ -No Poses a threat to life or bodily function? How? (Chest pain, [place], [place], pneumonia, PE, COPD, DKA, ARF, appy, cholecystitis, CVA, Diverticulitis, Homicidal, Suicidal, threat to staff... and all critical care pts) @ -unlikely Disposition Clinical Impression: Laceration Disposition: HOME SELF-CARE Condition: Good Instructions (If sedation given, give patient instructions): Laceration Without Closure (ED) Additional Instructions: Follow-up with PCP. Report back to ER with any new or worsening symptoms. Keep your wound clean dry and covered. You may remove the Gelfoam after 3 days, this will either naturally fall off or you can soak it to remove it. Is patient prescribed a controlled substance at d/c from ED?: No Referrals: Keri Garcia DO [Primary Care Provider] - 1-2 days Time of Disposition: 03:26
[2024-09-24 03:34] VITALS: BP 143/87; PULSE 86; RESP 17; TEMP 97.7
== END 2024-09-24 03:34 | disposition home or self-care (01) ==
LOC: EC 02:51
DX: S61.212A Laceration without foreign body of right middle finger without damage to nail, initial encounter (principal); Z23 Encounter for immunization; Z88.0 Allergy status to penicillin; Z88.1 Allergy status to other antibiotic agents; Z88.5 Allergy status to narcotic agent; W26.8XXA Contact with other sharp object(s), not elsewhere classified, initial encounter; Y92.239 Unspecified place in hospital as the place of occurrence of the external cause; Y99.0 Civilian activity done for income or pay
CPT/HCPCS: 90471; 90715; 99282